=== PATIENT | male | born 1945 | race African-American/Black ===

== ENCOUNTER 2024-08-25 10:03 | Outpatient (REF) | payer OTHER, SELFPAY ==
[2024-08-25 11:13] LABS: Erythrocyte Sedimentation Rate 14 MM/HR (0-15)
--- OUTSIDE RECORDS SUMMARY | 2024-08-25 11:39 | XMS_ITS | Encounter Summary ---
Author Organization [facility] [place] [address] Care Team Providers Care Belt Brander Name Role Phone Yessi Parish MD Primary Care Provider [phone] Encounter Details Date Type Department Care Team (Latest Contact Info) Description 06/03/2024 Lab Requisition [facility] - Main Lab [address] [place] [address] Jah Middleton MD [address] [place] [address] Hyperlipidemia, unspecified; Encounter for screening for other viral diseases; Postprocedural hypothyroidism; Encounter for general adult medical examination without abnormal findings; Essential (primary) hypertension; Mild intermittent asthma, uncomplicated; Unspecified osteoarthritis, unspecified site; Vitamin D deficiency, unspecified; Anemia, unspecified; Type 2 diabetes mellitus with hyperglycemia (CMS/HCC V24, CMS/HCC V28) Social History Tobacco Use Types Packs/Day Years Used Date Smoking Tobacco: Never Smokeless Tobacco: Never Alcohol Use Standard Drinks/Week Comments No 0 (1 standard drink = 0.6 oz pur e alcohol) Sex and Gender Information Value Date Recorded Sex Assigned at Male 06/18/2024 9:57 PM EST Legal Sex Male 1:50 PM EST Gender Identity Male 06/18/2024 9:57 PM EST Sexual Orientation Straight 06/18/2024 9: 57 PM EST documented as of this encounter Plan of Treatment Upcoming Encounters Date Type Department Care Team (Late st Contact Info) Description 09/25/2024 1:00 PM EDT Office Visit Endocrinology [facility] [place] [address] [place] [address] Tawana Sethi PA [address] [place] [address] documented as of this encounter Procedures Procedure Name Priority Date/Time Associated Diagnosis Comments HEPATITIS C ANTIBODY Routine 06/04/2024 7:56 AM EST Encounter for screening for other viral diseases VITAMIN B12 AND FOLATE Routine 06/04/2024 7:56 AM EST Anemia, unspecified CBC WITH AUTO DIFFERENTIAL Routine 06/04/2024 7:56 AM EST Mild intermittent asthma, uncomplicated VITAMIN D 25 HYDROXY Routine 06/04/2024 7:56 AM EST Vitamin D deficiency, unspecified SEDIMENTATION RATE Routine 06/04/2024 7: 56 AM EST Unspecified osteoarthritis, unspecified site CBC AND DIFFERENTIAL Routine 06/04/2024 7:56 AM EST Mild intermittent asthma, uncomplicated URIC ACID Routine 06/04/2024 7:56 AM EST Encounter for general adult medical examination without abnormal findings THYROID STIMULATING HORMONE Routine 06/04/2024 7:56 AM EST Postprocedural hypothyroidism LDL CHOLESTEROL, DIRECT Routine 06/04/2024 7:56 AM EST Hyperlipidemia, unspecified HDL CHOLESTEROL Routine 06/04/2024 7:56 AM EST Hyperlipidemia, unspecified HEMOGLOBIN A1C Routine 06/04/2024 7:56 AM EST Type 2 diabetes mellitus with hyperglycemia (CMS/HCC) CHOLESTEROL, TOTAL Routine 06/04/2024 7: 56 AM EST Hyperlipidemia, unspecified COMPREHENSIVE METABOLIC PANEL Routine 06/04/2024 7:56 AM EST Essential (primary) hypertension documented in this encounter Results * (ABNORMAL) CBC auto differential (06/04/2024 7:56 AM EST) [facility] WBC 7.7 4.8 - 10.8 K/mcL LAB HEMETOLOGY METHOD 06/04/2024 8:24 AM [facility] RBC 4.40(L) 4.50 - 5.50 M/mcL LAB HEMETOLOGY METHOD 06/04/2024 8:24 AM [facility] LAB Hemoglobin 12.7(L) 13.5 - 17.5 g/dL LAB HEMETOLOGY METHOD 06/04/2024 8:24 AM [facility] LAB Hematocrit 39.5(L) 42.0 - 54.0 % LAB HEMETOLOGY METHOD 06/04/2024 8:24 AM [facility] MCV 90.2 79.0 - 98.0 FL LAB HEMETOLOGY METHOD 06/04/2024 8:24 AM [facility] LAB MCH 29.0 27.0 - 32.0 pcg LAB HEMETOLOGY METHOD 06/04/2024 8:24 AM [facility] LAB MCHC 32.2 32.0 - 37.0 g/dL LAB HEMETOLOGY METHOD 06/04/2024 8:24 AM [facility] RDW 11.8 11.0 - 15.0 % LAB HEMETOLOGY METHOD 06/04/2024 8:24 AM [facility] LAB Platelets 246 130 - 400 K/mcL LAB HEMETOLOGY METHOD 06/04/2024 8:24 AM [facility] MPV 9.6 7.0 - 11.0 FL LAB HEMETOLOGY METHOD 06/04/2024 8:24 AM [facility] NRBC 0.0 <1.0 % LAB HEMETOLOGY METHOD 06/04/2024 8:24 AM [facility] NRBC Absolute 0.00 <0.10 K/mcL LAB HEMETOLOGY METHOD 06/04/2024 8:24 AM [facility] Neutrophils Relative 57.8 % LAB HEMETOLOGY METHOD 06/04/2024 8:24 AM [facility] Lymphocytes Relative 29.5 % LAB HEMETOLOGY METHOD 06/04/2024 8:24 AM [facility] Monocytes Relative 10.0 % LAB HEMETOLOGY METHOD 06/04/2024 8:24 AM [facility] Eosinophils Relative 1.4 % LAB HEMETOLOGY METHOD 06/04/2024 8:24 AM [facility] Basophils Relative 0.8 % LAB HEMETOLOGY METHOD 06/04/2024 8:24 AM [facility] Immature Granulocytes Relative 0.5 % LAB HEMETOLOGY METHOD 06/04/2024 8:24 AM [facility] Neutrophils Absolute 4.43 1.50 - 7.00 K/mcL LAB HEMETOLOGY METHOD 06/04/2024 8:24 AM [facility] Lymphocytes Absolute 2.26 1.00 - 5.00 K/mcL LAB HEMETOLOGY METHOD 06/04/2024 8:24 AM [facility] Monocytes Absolute 0.77 0.20 - 1.00 K/mcL LAB HEMETOLOGY METHOD 06/04/2024 8:24 AM [facility] Eosinophils Absolute 0.11 0.00 - 0.50 K/mcL LAB HEMETOLOGY METHOD 06/04/2024 8:24 AM [facility] Basophils Absolute 0.06 0.00 - 0.20 K/mcL LAB HEMETOLOGY METHOD 06/04/2024 8:24 AM EST [facility] Immature Granulocytes Absolute 0.04(H) 0.00 - 0.03 K/mcL LAB HEMETOLOGY METHOD 06/04/2024 8:24 AM EST [facility] Blood Venous blood specimen / Unknown Venipuncture / Unknown 06/04/2024 7:56 AM EST 06/04/2024 8:10 AM EST Jah Middleton MD LAB BLOOD ORDERABLES Final Res ult [facility] [address] [place] [address], [place] [phone] * Hemoglobin A1c (06/04/2024 7:56 AM EST) Hemoglobin A1C 5.0 <6.5 % LAB CHEMISTRY METHOD 06/04/2024 12:36 PM EST [facility] Mean Bld Glu Estim. 97 mg/dL LAB CHEMISTRY METHOD 06/04/2024 12:36 PM EST [facility] Blood Venous blood specimen / Unknown Venipuncture / Unknown 06/04/2024 7:56 AM EST 06/04/2024 8:10 AM EST Jah Middleton MD LAB BLOOD ORDERABLES Final Res ult [facility] [address] [place] [address], [place] [phone] * Vitamin B12 and folate (06/04/2024 7:56 AM EST) Vitamin B-12 343 250 - 900 pcg/mL LAB CHEMISTRY METHOD 06/04/2024 9:11 AM EST [facility] Folate 5.7 2.8 - 17.0 ng/ml LAB CHEMISTRY METHOD 06/04/2024 9:11 AM EST [facility] Blood Venous blood specimen / Unknown Venipuncture / Unknown 06/04/2024 7:56 AM EST 06/04/2024 8:09 AM EST Jah Middleton MD LAB BLOOD ORDERABLES Final Res ult Performing Organization Address [facility]/ZIP Co de Phone Number [facility] [address] [place] [address], [place] [phone] * Cholesterol, total (06/04/2024 7:56 AM EST) Cholesterol 130 0 - 200 mg/dL LAB CHEMISTRY METHOD 06/04/2024 8:49 AM EST [facility] Blood Venous blood specimen / Unknown Venipuncture / Unknown 06/04/2024 7:56 AM EST 06/04/2024 8:09 AM EST Jah Middleton MD LAB BLOOD ORDERABLES Final Res ult Performing Organization Address [facility]/ZIP Co de Phone Number [facility] [address] [place] [address], [place] [phone] * (ABNORMAL) Vitamin D 25 hydroxy (06/04/2024 7:56 AM EST) Vit D, 25-Hydroxy 19.8(L) 30.0 - 80.0 ng/mL LAB CHEMISTRY METHOD 06/04/2024 8:57 AM EST [facility] Blood Venous blood specimen / Unknown Venipuncture / Unknown 06/04/2024 7:56 AM EST 06/04/2024 8:09 AM EST Jah Middleton MD LAB BLOOD ORDERABLES Final Res ult Performing Organization Address City/[facility]/ZIP Co de Phone Number [facility] [address] [place] [address], [place] [phone] * Sedimentation rate (06/04/2024 7:56 AM EST) Sed Rate 17 0 - 20 mm/hr LAB HEMETOLOGY METHOD 06/04/2024 8:25 AM [facility] Blood Venous blood specimen / Unknown Venipuncture / Unknown 06/04/2024 7:56 AM EST 06/04/2024 8:10 AM EST Jah Middleton MD LAB BLOOD ORDERABLES Final Res ult [facility] [address] [place] [address], * (ABNORMAL) Comprehensive metabolic panel (06/04/2024 7:56 AM EST) Sodium 136 133 - 145 mmol/L LAB CHEMISTRY METHOD 06/04/2024 8:49 AM [facility] Potassium 4.2 3.5 - 5.5 mmol/L LAB CHEMISTRY METHOD 06/04/2024 8:49 AM [facility] Chloride 107 96 - 110 mmol/L LAB CHEMISTRY METHOD 06/04/2024 8:49 AM [facility] CO2 26 21 - 32 mmol/L LAB CHEMISTRY METHOD 06/04/2024 8:49 AM [facility] Anion Gap 3 3 - 11 LAB CHEMISTRY METHOD 06/04/2024 8:49 AM [facility] Glucose 98 70 - 100 mg/dL LAB CHEMISTRY METHOD 06/04/2024 8:49 AM [facility] BUN 8 5 - 25 mg/dL LAB CHEMISTRY METHOD 06/04/2024 8:49 AM [facility] Creatinine 1.61(H) 0.70 - 1.30 mg/dL LAB CHEMISTRY METHOD 06/04/2024 8:49 AM [facility] eGFR 44(L) >=60 mL/min/1. 73m2 LAB CHEMISTRY METHOD 06/04/2024 8:49 AM [facility] Comment:Calculation based on the??Chronic Kidney Disease Epidemiology Collaboration (CKD-EPI) equation refit??without adjustment for race. BUN/Creatinine Ratio 5.0 LAB CHEMISTRY METHOD 06/04/2024 8:49 AM [facility] Calcium 9.3 8.5 - 10.5 mg/dL LAB CHEMISTRY METHOD 06/04/2024 8:49 AM [facility] AST (SGOT) 17 10 - 42 unit/L LAB CHEMISTRY METHOD 06/04/2024 8:49 AM [facility] ALT (SGPT) 15 10 - 60 unit/L LAB CHEMISTRY METHOD 06/04/2024 8:49 AM [facility] Alkaline Phosphatase 50 42 - 121 unit/L LAB CHEMISTRY METHOD 06/04/2024 8:49 AM [facility] Total Protein 7.1 6.0 - 8.0 g/dL LAB CHEMISTRY METHOD 06/04/2024 8:49 AM [facility] Albumin 3.8 3.2 - 5.0 g/dL LAB CHEMISTRY METHOD 06/04/2024 8:49 AM [facility] Total Bilirubin 0.6 0.0 - 1.4 mg/dL LAB CHEMISTRY METHOD 06/04/2024 8:49 AM [facility] Blood Venous blood specimen / Unknown Venipuncture / Unknown 06/04/2024 7:56 AM EST 06/04/2024 8:09 AM EST us Jah Middleton MD LAB BLOOD ORDERABLES Final Res ult [facility] [address] [place] [address], * (ABNORMAL) Uric acid (06/04/2024 7:56 AM EST) Uric Acid 3.4(L) 3.7 - 9.2 mg/dL LAB CHEMISTRY METHOD 06/04/2024 8:49 AM EST [facility] Blood Venous blood specimen / Unknown Venipuncture / Unknown 06/04/2024 7:56 AM EST 06/04/2024 8:09 AM EST Jha Middleton MD LAB BLOOD ORDERABLES Final Res ult [facility] [address] [place] [address], [place] [phone] * Thyroid stimulating hormone (06/04/2024 7:56 AM EST) [facility] TSH 0.86 0.40 - 4.00 mcIU/mL LAB CHEMISTRY METHOD 06/04/2024 8:57 AM EST [facility] Blood Venous blood specimen / Unknown Venipuncture / Unknown 06/04/2024 7:56 AM EST 06/04/2024 8:09 AM EST Jah Middleton MD LAB BLOOD ORDERABLES Final Res ult Performing Organization Address [facility]/ZIP Co de Phone Number [facility] [address] [place] [address], [place] [phone] * Hepatitis C antibody (06/04/2024 7:56 AM EST) [facility] Hepatitis C Antibody Negative Negative LAB CHEMISTRY METHOD 06/09/2024 7:08 AM EST [facility] Blood Venous blood specimen / Unknown Venipuncture / Unknown 06/04/2024 7:56 AM EST 06/04/2024 8:09 AM EST Jah Middleton MD LAB BLOOD ORDERABLES Edited Re sult - Final [facility] [address] [place] [address], [place] [phone] * LDL cholesterol, direct (06/04/2024 7:56 AM EST) LDL Direct 61 <=100 mg/dL LAB CHEMISTRY METHOD 06/04/2024 9:11 AM EST [facility] Blood Venous blood specimen / Unknown Venipuncture / Unknown 06/04/2024 7:56 AM EST 06/04/2024 8:09 AM EST us Jah Middleton MD LAB BLOOD ORDERABLES Final Res ult [facility] [address] [place] [address], [place] [phone] * HDL cholesterol (06/04/2024 7:56 AM EST) HDL 56 >=40 mg/dL LAB CHEMISTRY METHOD 06/04/2024 9:11 AM EST [facility] Blood Venous blood specimen / Unknown Venipuncture / Unknown 06/04/2024 7:56 AM EST 06/04/2024 8:09 AM EST us Jah Middleton MD LAB BLOOD ORDERABLES Final Res ult [facility] [address] [place] [address], [place] [phone] documented in this encounter Visit Diagnoses Diagnosis Hyperlipidemia, unspecified Encounter for screening for other viral diseases Postprocedural hypothyroidism Postsurgical hypothyroidism Encounter for general adult medical examination without abnormal findings Essential (primary) hypertension Unspecified essential hypertension Mild intermittent asthma, uncomplicated Unspecified osteoarthritis, unspecified site Vitamin D deficiency, unspecified Anemia, unspecified Type 2 diabetes mellitus with hyperglycemia (CMS/HCC V24, CMS/HCC V28) documented in this encounter Additional Health Concerns Infection Onset Date Last Indicated Resolved Time Respiratory Rule-Out 06/18/2024 06/18/2024 025 11:25 PM EST COVID-19 Rule-Out 06/18/2024 06/18/2024 06/18/2024 11:25 PM EST Respiratory Rule-Out Comment:Completed isolation 06/20/2024 06/20/2024 06/25/2024 12:28 PM EST COVID-19 Rule-Out Comment:Completed isolation 06/20/2024 06/20/2024 06/25/2024 12:28 PM EST Herpes simplex 08/07/2024 08/07/2024 documented as of this encounter Care Teams Belt Brander Relationship Specialty Start Date End Date Yessi Parish MD [address] [address] PCP - General Internal Medicine 08/21/24 documented as of this encounter
--- OUTSIDE RECORDS SUMMARY | 2024-08-25 11:39 | XMS_ITS | Encounter Summary ---
Author Organization [facility] [place] [address] Care Team Providers Care Foil Spooler Name Role Phone Yessi Parish MD Primary Care Provider [phone] Encounter Details Date Type Department Care Team (Latest Contact Info) Description 06/30/2024 Lab Requisition [facility] - Main Lab [address] [place] [address] Jah Middleton MD [address] [place] [address] Rhabdomyolysis; Postprocedural hypothyroidism; Encounter for general adult medical examination without abnormal findings; Essential (primary) hypertension; Mild intermittent asthma, uncomplicated; Unspecified osteoarthritis, unspecified site; Urgency of urination; Type 2 diabetes mellitus with hyperglycemia (CMS/HCC V24, CMS/HCC V28) Social History Tobacco Use Types Packs/Day Years Used Date Smoking Tobacco: Never Smokeless Tobacco: Never Alcohol Use Standard Drinks/Week Comments No 0 (1 standard drink = 0.6 oz pur e alcohol) Interpersonal Safety Answer Date Record ed Physical Abuse 06/19/2024 Verbal Abuse 06/19/2024 Sex and Gender Information Value Date Recorded Sex Assigned at Male 06/18/2024 9:57 PM EST Legal Sex Male 1:50 PM EST Gender Identity Male 06/18/2024 9:57 PM EST Sexual Orientation Straight 06/18/2024 9: 57 PM EST documented as of this encounter Plan of Treatment Upcoming Encounters Date Type Department Care Team (Late st Contact Info) Description 09/25/2024 1:00 PM EDT Office Visit [place] [facility] [place] [address] [place] [address] Tawana Sethi PA [address] [place] [address] documented as of this encounter Procedures Procedure Name Priority Date/Time Associated Diagnosis Comments CBC WITH AUTO DIFFERENTIAL Routine 07/02/2024 10:40 AM EDT Mild intermittent asthma, uncomplicated SEDIMENTATION RATE Routine 07/02/2024 10 :40 AM EDT Unspecified osteoarthritis, unspecified site CBC AND DIFFERENTIAL Routine 07/02/2024 10:40 AM EDT Mild intermittent asthma, uncomplicated URIC ACID Routine 07/02/2024 10:40 AM EDT Encounter for general adult medical examination without abnormal findings THYROID STIMULATING HORMONE Routine 07/02/2024 10:40 AM EDT Postprocedural hypothyroidism MYOGLOBIN, SERUM Routine 07/02/2024 10:4 0 AM EDT Rhabdomyolysis HEMOGLOBIN A1C Routine 07/02/2024 10:40 AM EDT Type 2 diabetes mellitus with hyperglycemia ([facility]/HCC) CREATINE KINASE Routine 07/02/2024 10:40 AM EDT COMPREHENSIVE METABOLIC PANEL Routine 07/02/2024 10:40 AM EDT Essential (primary) hypertension documented in this encounter Results * (ABNORMAL) CBC auto differential (07/02/2024 10:40 AM EDT) WBC 8.6 4.8 - 10.8 K/mcL LAB HEMETOLOGY METHOD 07/02/2024 11:03 AM [facility] RBC 4.40(L) 4.50 - 5.50 M/mcL LAB HEMETOLOGY METHOD 07/02/2024 11:03 AM [facility] Hemoglobin 12.6(L) 13.5 - 17.5 g/dL LAB HEMETOLOGY METHOD 07/02/2024 11:03 AM [facility] Hematocrit 40.0(L) 42.0 - 54.0 % LAB HEMETOLOGY METHOD 07/02/2024 11:03 AM [facility] MCV 90.3 79.0 - 98.0 FL LAB HEMETOLOGY METHOD 07/02/2024 11:03 AM [facility] MCH 28.4 27.0 - 32.0 pcg LAB HEMETOLOGY METHOD 07/02/2024 11:03 AM [facility] MCHC 31.5(L) 32.0 - 37.0 g/dL LAB HEMETOLOGY METHOD 07/02/2024 11:03 AM [facility] RDW 11.9 11.0 - 15.0 % LAB HEMETOLOGY METHOD 07/02/2024 11:03 AM [facility] Platelets 289 130 - 400 K/mcL LAB HEMETOLOGY METHOD 07/02/2024 11:03 AM [facility] MPV 10.2 7.0 - 11.0 FL LAB HEMETOLOGY METHOD 07/02/2024 11:03 AM [facility] NRBC 0.0 <1.0 % LAB HEMETOLOGY METHOD 07/02/2024 11:03 AM [facility] NRBC Absolute 0.00 <0.10 K/mcL LAB HEMETOLOGY METHOD 07/02/2024 11:03 AM [facility] Neutrophils Relative 65.4 % LAB HEMETOLOGY METHOD 07/02/2024 11:03 AM [facility] Lymphocytes Relative 22.5 % LAB HEMETOLOGY METHOD 07/02/2024 11:03 AM [facility] Monocytes Relative 9.8 % LAB HEMETOLOGY METHOD 07/02/2024 11:03 AM [facility] Eosinophils Relative 1.0 % LAB HEMETOLOGY METHOD 07/02/2024 11:03 AM [facility] Basophils Relative 1.0 % LAB HEMETOLOGY METHOD 07/02/2024 11:03 AM [facility] Immature Granulocytes Relative 0.3 % LAB HEMETOLOGY METHOD 07/02/2024 11:03 AM [facility] Neutrophils Absolute 5.62 1.50 - 7.00 K/mcL LAB HEMETOLOGY METHOD 07/02/2024 11:03 AM [facility] Lymphocytes Absolute 1.94 1.00 - 5.00 K/mcL LAB HEMETOLOGY METHOD 07/02/2024 11:03 AM [facility] Monocytes Absolute 0.84 0.20 - 1.00 K/mcL LAB HEMETOLOGY METHOD 07/02/2024 11:03 AM [facility] Eosinophils Absolute 0.09 0.00 - 0.50 K/mcL LAB HEMETOLOGY METHOD 07/02/2024 11:03 AM [facility] Basophils Absolute 0.09 0.00 - 0.20 K/mcL LAB HEMETOLOGY METHOD 07/02/2024 11:03 AM [facility] Immature Granulocytes Absolute 0.03 0.00 - 0.03 K/mcL LAB HEMETOLOGY METHOD 07/02/2024 11:03 AM [facility] Blood Venous blood specimen / Unknown Venipuncture / Unknown 07/02/2024 10:40 AM EDT 07/02/2024 10:45 AM EDT Jah Middleton MD LAB BLOOD ORDERABLES Final Res ult Performing Organization Address City/[facility]/ZIP Co de Phone Number [facility] [address] [place] [address], [place] [phone] * Hemoglobin A1c (07/02/2024 10:40 AM EDT) Pathologist [facility] Hemoglobin A1C 5.0 <6.5 % LAB CHEMISTRY METHOD 07/02/2024 1:42 PM EDT [facility] Mean Bld Glu Estim. 97 mg/dL LAB CHEMISTRY METHOD 07/02/2024 1:42 PM EDT [facility] Blood Venous blood specimen / Unknown Venipuncture / Unknown 07/02/2024 10:40 AM EDT 07/02/2024 10:45 AM EDT Jah Middleton MD LAB BLOOD ORDERABLES Final Res ult Performing Organization Address [facility]/ZIP Co de Phone Number [facility] [address] [place] [address], [place] [phone] * Creatine kinase (07/02/2024 10:40 AM EDT) Pathologist [facility] Total CK 107 22 - 269 unit/L LAB CHEMISTRY METHOD 07/02/2024 12:44 PM EDT [facility] Blood Venous blood specimen / Unknown Venipuncture / Unknown 07/02/2024 10:40 AM EDT 07/02/2024 10:47 AM EDT Jah Middleton MD LAB BLOOD ORDERABLES Final Res ult Performing Organization Address City/[facility]/ZIP Co de Phone Number [facility] [address] [place] [address], [place] [phone] * (ABNORMAL) Sedimentation rate (07/02/2024 10:40 AM EDT) Sed Rate 37(H) 0 - 20 mm/hr LAB HEMETOLOGY METHOD 07/02/2024 11:00 AM [facility] Blood Venous blood specimen / Unknown Venipuncture / Unknown 07/02/2024 10:40 AM EDT 07/02/2024 10:46 AM EDT us Jah Middleton MD LAB BLOOD ORDERABLES Final Res ult [facility] [address] [place] [address], * (ABNORMAL) Comprehensive metabolic panel (07/02/2024 10:40 AM EDT) Sodium 135 133 - 145 mmol/L LAB CHEMISTRY METHOD 07/02/2024 12:44 PM [facility] Potassium 4.9 3.5 - 5.5 mmol/L LAB CHEMISTRY METHOD 07/02/2024 12:44 PM [facility] Chloride 106 96 - 110 mmol/L LAB CHEMISTRY METHOD 07/02/2024 12:44 PM [facility] CO2 22 21 - 32 mmol/L LAB CHEMISTRY METHOD 07/02/2024 12:44 PM [facility] Anion Gap 7 3 - 11 LAB CHEMISTRY METHOD 07/02/2024 12:44 PM [facility] Glucose 101(H) 70 - 100 mg/dL LAB CHEMISTRY METHOD 07/02/2024 12:44 PM [facility] BUN 13 5 - 25 mg/dL LAB CHEMISTRY METHOD 07/02/2024 12:44 PM [facility] Creatinine 1.79(H) 0.70 - 1.30 mg/dL LAB CHEMISTRY METHOD 07/02/2024 12:44 PM [facility] eGFR 38(L) >=60 mL/min/1. 73m2 LAB CHEMISTRY METHOD 07/02/2024 12:44 PM [facility] Comment:Calculation based on the??Chronic Kidney Disease Epidemiology Collaboration (CKD-EPI) equation refit??without adjustment for race. BUN/Creatinine Ratio 7.3 LAB CHEMISTRY METHOD 07/02/2024 12:44 PM [facility] Calcium 9.7 8.5 - 10.5 mg/dL LAB CHEMISTRY METHOD 07/02/2024 12:44 PM [facility] AST (SGOT) 18 10 - 42 unit/L LAB CHEMISTRY METHOD 07/02/2024 12:44 PM [facility] ALT (SGPT) 35 10 - 60 unit/L LAB CHEMISTRY METHOD 07/02/2024 12:44 PM [facility] Alkaline Phosphatase 47 42 - 121 unit/L LAB CHEMISTRY METHOD 07/02/2024 12:44 PM [facility] Total Protein 7.3 6.0 - 8.0 g/dL LAB CHEMISTRY METHOD 07/02/2024 12:44 PM [facility] Albumin 3.9 3.2 - 5.0 g/dL LAB CHEMISTRY METHOD 07/02/2024 12:44 PM [facility] Total Bilirubin 0.5 0.0 - 1.4 mg/dL LAB CHEMISTRY METHOD 07/02/2024 12:44 PM [facility] Blood Venous blood specimen / Unknown Venipuncture / Unknown 07/02/2024 10:40 AM EDT 07/02/2024 10:47 AM EDT us Jah Middleton MD LAB BLOOD ORDERABLES Final Res ult [facility] [address] [place] [address], * Uric acid (07/02/2024 10:40 AM EDT) Uric Acid 4.4 3.7 - 9.2 mg/dL LAB CHEMISTRY METHOD 07/02/2024 12:44 PM EDT [facility] Blood Venous blood specimen / Unknown Venipuncture / Unknown 07/02/2024 10:40 AM EDT 07/02/2024 10:47 AM EDT Jah Middleton MD LAB BLOOD ORDERABLES Final Res ult [facility] [address] [place] [address], [place] [phone] * Thyroid stimulating hormone (07/02/2024 10:40 AM EDT) TSH 1.06 0.40 - 4.00 mcIU/mL LAB CHEMISTRY METHOD 07/02/2024 12:51 PM EDT [facility] Blood Venous blood specimen / Unknown Venipuncture / Unknown 07/02/2024 10:40 AM EDT 07/02/2024 10:47 AM EDT Jah Middleton MD LAB BLOOD ORDERABLES Final Res ult Performing Organization Address City/[facility]/ZIP Co de Phone Number [facility] [address] [place] [address], [place] [phone] * Myoglobin, serum (07/02/2024 10:40 AM EDT) Myoglobin 46 <=72 ng/mL 07/06/2024 2:27 AM EDT [facility] Comment: REFERENCE INTERVAL: Myoglobin Serum Access complete set of age- and/or gender-specific reference intervals for this test in the [facility] Test Directory ([employer]). Performed By: [facility] [address] [place] [id number] [employer]n Firer: Salazar Brooks MD, PhD CLIA Number: [id number] Blood Venous blood specimen / Unknown Venipuncture / Unknown 07/02/2024 10:40 AM EDT 07/02/2024 10:46 AM EDT Jah Middleton MD LAB BLOOD ORDERABLES Final Res ult [facility] [address] [place] [address] documented in this encounter Visit Diagnoses Diagnosis Rhabdomyolysis Postprocedural hypothyroidism Postsurgical hypothyroidism Encounter for general adult medical examination without abnormal findings Essential (primary) hypertension Unspecified essential hypertension Mild intermittent asthma, uncomplicated Unspecified osteoarthritis, unspecified site Urgency of urination Type 2 diabetes mellitus with hyperglycemia (CMS/[facility] V24, CMS/[facility] V28) documented in this encounter Additional Health Concerns Infection Onset Date Last Indicated Resolved Time Herpes simplex 08/07/2024 08/07/2024 documented as of this encounter Care Teams Foil Spooler Relationship Specialty Start Date End Date Yessi Parish MD [address] [place] [address] PCP - General Internal Medicine 08/21/24 documented as of this encounter
--- OUTSIDE RECORDS SUMMARY | 2024-08-25 11:39 | XMS_ITS | Encounter Summary ---
Author Organization [facility] [place] [address] Care Team Providers Care Hospital Receptionist Name Role Phone Yessi Parish MD Primary Care Provider [phone] Encounter Details Date Type Department Care Team (Latest Contact Info) Description 05/07/2024 Lab Requisition [facility] - Main Lab [address] [facility] [place] [address] Cory Hand, DARIO [address] [facility] DIL[place] [address] [place] [address] Encounter for screening for malignant neoplasm of prostate; Type 2 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 (CMS/HCC V24, CMS/HCC V28); Hyperlipidemia, unspecified; Essential (primary) hypertension Social History Tobacco Use Types Packs/Day Years [...] 09/25/2024 1:00 PM EDT Office Visit Endocrinology - [place] [address] [place], [place] [phone] Tawana Sethi PA [address] [place] [address] documented as of this encounter Procedures Procedure Name Priority Date/Time Associated Diagnosis Comments PROSTATE SPECIFIC ANTIGEN SCREEN Routine 05/07/2024 12:00 AM EST Encounter for screening for malignant neoplasm of prostate Type 2 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 (CMS/HCC) Hyperlipidemia, unspecified Essential (primary) hypertension SST - GOLD Routine 05/07/2024 12:00 AM EST Encounter for screening for malignant neoplasm of prostate Type 2 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 (CMS/HCC) Hyperlipidemia, unspecified Essential (primary) hypertension LIPID PANEL WITH REFLEX TO DIRECT LDL Routine 05/07/2024 12:00 AM EST Encounter for screening for malignant neoplasm of prostate Type 2 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 (CMS/HCC) Hyperlipidemia, unspecified Essential (primary) hypertension CBC WITH AUTO DIFFERENTIAL Routine 05/07/2024 12:00 AM EST Encounter for screening for malignant neoplasm of prostate Type 2 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 (CMS/HCC) Hyperlipidemia, unspecified Essential (primary) hypertension CBC AND DIFFERENTIAL Routine 05/07/2024 12:00 AM EST Encounter for screening for malignant neoplasm of prostate Type 2 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 (CMS/HCC) Hyperlipidemia, unspecified Essential (primary) hypertension LDL CHOLESTEROL, DIRECT Routine 05/07/2024 12:00 AM EST Encounter for screening for malignant neoplasm of prostate Type 2 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 (CMS/HCC) Hyperlipidemia, unspecified Essential (primary) hypertension HEMOGLOBIN A1C Routine 05/07/2024 12:00 AM EST Encounter for screening for malignant neoplasm of prostate Type 2 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 (CMS/HCC) Hyperlipidemia, unspecified Essential (primary) hypertension COMPREHENSIVE METABOLIC PANEL Routine 05/07/2024 12:00 AM EST Encounter for screening for malignant neoplasm of prostate Type 2 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 (CMS/HCC) Hyperlipidemia, unspecified Essential (primary) hypertension documented in this encounter Results * SST tube (05/07/2024 12:00 AM EST) Pathologist [facility] Extra Tube Hold for add-ons. 05/07/2024 8:01 PM EST [facility] Comment:Auto resulted. Blood Venous blood specimen / Unknown 05/07/2024 05/07/2024 6:56 PM EST Cory BISHOP LAB BLOOD ORDERABLES Final Res ult [facility] [address] [place] [address], [place] [phone] * (ABNORMAL) CBC auto differential (05/07/2024 12:00 AM EST) [facility] WBC 9.6 4.8 - 10.8 K/mcL LAB HEMETOLOGY METHOD 05/07/2024 7:05 PM [facility] RBC 4.30(L) 4.50 - 5.50 M/mcL LAB HEMETOLOGY METHOD 05/07/2024 7:05 PM [facility] Hemoglobin 12.3(L) 13.5 - 17.5 g/dL LAB HEMETOLOGY METHOD 05/07/2024 7:05 PM [facility] Hematocrit 39.3(L) 42.0 - 54.0 % LAB HEMETOLOGY METHOD 05/07/2024 7:05 PM [facility] MCV 91.0 79.0 - 98.0 FL LAB HEMETOLOGY METHOD 05/07/2024 7:05 PM [facility] MCH 28.5 27.0 - 32.0 pcg LAB HEMETOLOGY METHOD 05/07/2024 7:05 PM [facility] MCHC 31.3(L) 32.0 - 37.0 g/dL LAB HEMETOLOGY METHOD 05/07/2024 7:05 PM [facility] RDW 12.2 11.0 - 15.0 % LAB HEMETOLOGY METHOD 05/07/2024 7:05 PM [facility] Platelets 261 130 - 400 K/mcL LAB HEMETOLOGY METHOD 05/07/2024 7:05 PM [facility] MPV 10.0 7.0 - 11.0 FL LAB HEMETOLOGY METHOD 05/07/2024 7:05 PM [facility] NRBC 0.0 <1.0 % LAB HEMETOLOGY METHOD 05/07/2024 7:05 PM [facility] NRBC Absolute 0.00 <0.10 K/mcL LAB HEMETOLOGY METHOD 05/07/2024 7:05 PM [facility] Neutrophils Relative 64.3 % LAB HEMETOLOGY METHOD 05/07/2024 7:05 PM [facility] Lymphocytes Relative 22.7 % LAB HEMETOLOGY METHOD 05/07/2024 7:05 PM [facility] Monocytes Relative 10.6 % LAB HEMETOLOGY METHOD 05/07/2024 7:05 PM [facility] Eosinophils Relative 1.1 % LAB HEMETOLOGY METHOD 05/07/2024 7:05 PM [facility] Basophils Relative 0.8 % LAB HEMETOLOGY METHOD 05/07/2024 7:05 PM [facility] Immature Granulocytes Relative 0.5 % LAB HEMETOLOGY METHOD 05/07/2024 7:05 PM [facility] Neutrophils Absolute 6.18 1.50 - 7.00 K/mcL LAB HEMETOLOGY METHOD 05/07/2024 7:05 PM [facility] Lymphocytes Absolute 2.18 1.00 - 5.00 K/mcL LAB HEMETOLOGY METHOD 05/07/2024 7:05 PM EST [facility] Monocytes Absolute 1.02(H) 0.20 - 1.00 K/mcL LAB HEMETOLOGY METHOD 05/07/2024 7:05 PM EST [facility] Eosinophils Absolute 0.11 0.00 - 0.50 K/[facility] LAB HEMETOLOGY METHOD 05/07/2024 7:05 PM EST [facility] Basophils Absolute 0.08 0.00 - 0.20 K/[facility] LAB HEMETOLOGY METHOD 05/07/2024 7:05 PM EST [facility] Immature Granulocytes Absolute 0.05(H) 0.00 - 0.03 K/mcL LAB HEMETOLOGY METHOD 05/07/2024 7:05 PM EST [facility] Blood Venous blood specimen / Unknown 05/07/2024 05/07/2024 6:56 PM EST us Cory BISHOP LAB BLOOD ORDERABLES Final Res ult [facility] [address] [place] [address], * Prostate specific antigen screen (05/07/2024 12:00 AM EST) PSA <0.06 0.00 - 4.00 ng/mL LAB CHEMISTRY METHOD 05/07/2024 10:14 PM EST [facility] Blood Venous blood specimen / Unknown 05/07/2024 05/07/2024 6:56 PM EST Narrative [facility] - 05/07/2024 10:14 PM EST The Siemens Advia Centaur Chemiluminescent Immunoassay is used. Results obtained with different assay methods or kits cannot be used interchangeably. Results cannot be interpreted as absolute evidence of the presence or absence of malignant disease. Cory BISHOP LAB BLOOD ORDERABLES Final Res ult [facility] [address] [place] [address], [place] [phone] * Hemoglobin A1c (05/07/2024 12:00 AM EST) Hemoglobin A1C 5.2 <6.5 % LAB CHEMISTRY METHOD 05/08/2024 10:14 AM EST [facility] Mean Bld Glu Estim. 103 mg/dL LAB CHEMISTRY METHOD 05/08/2024 10:14 AM EST [facility] Blood Venous blood specimen / Unknown 05/07/2024 05/07/2024 6:56 PM EST Cory BISHOP LAB BLOOD ORDERABLES Final Res ult Performing Organization Address [facility]/ZIP Co de Phone Number [facility] [address] [place] [address], [place] [phone] * LDL cholesterol, direct (05/07/2024 12:00 AM EST) LDL Direct 69 <=100 mg/dL LAB CHEMISTRY METHOD 05/07/2024 9:52 PM EST [facility] Blood Venous blood specimen / Unknown 05/07/2024 05/07/2024 6:56 PM EST Cory BISHOP LAB BLOOD ORDERABLES Final Res ult [facility] [address] [place] [address], [place] [phone] * Lipid panel with reflex to direct LDL (05/07/2024 12:00 AM EST) Cholesterol 146 0 - 200 mg/dL LAB CHEMISTRY METHOD 05/07/2024 9:52 PM EST [facility] Triglycerides 66 0 - 150 mg/dL LAB CHEMISTRY METHOD 05/07/2024 9:52 PM [facility] HDL 53 >=40 mg/dL LAB CHEMISTRY METHOD 05/07/2024 9:52 PM [facility] LDL Calculated 80 0 - 100 mg/dL LAB CHEMISTRY METHOD 05/07/2024 9:52 PM [facility] VLDL Cholesterol Chandra 13.2 mg/dL LAB CHEMISTRY METHOD 05/07/2024 9:52 PM [facility] Non HDL Chol. (LDL+VLDL) 93 <145 mg/dL LAB CHEMISTRY METHOD 05/07/2024 9:52 PM [facility] Chol/HDL Ratio 2.8 0.0 - 4.4 LAB CHEMISTRY METHOD 05/07/2024 9:52 PM [facility] Blood Venous blood specimen / Unknown 05/07/2024 05/07/2024 6:56 PM EST us Cory BISHOP LAB BLOOD ORDERABLES Final Res ult [facility] [address] [place] [address], [place] [phone] * (ABNORMAL) Comprehensive metabolic panel (05/07/2024 12:00 AM EST) Sodium 136 133 - 145 mmol/L LAB CHEMISTRY METHOD 05/07/2024 9:52 PM [facility] Potassium 4.4 3.5 - 5.5 mmol/L LAB CHEMISTRY METHOD 05/07/2024 9:52 PM [facility] Chloride 106 96 - 110 mmol/L LAB CHEMISTRY METHOD 05/07/2024 9:52 PM [facility] CO2 24 21 - 32 mmol/L LAB CHEMISTRY METHOD 05/07/2024 9:52 PM [facility] Anion Gap 6 3 - 11 LAB CHEMISTRY METHOD 05/07/2024 9:52 PM [facility] Glucose 108(H) 70 - 100 mg/dL LAB CHEMISTRY METHOD 05/07/2024 9:52 PM [facility] BUN 10 5 - 25 mg/dL LAB CHEMISTRY METHOD 05/07/2024 9:52 PM [facility] Creatinine 1.80(H) 0.70 - 1.30 mg/dL LAB CHEMISTRY METHOD 05/07/2024 9:52 PM [facility] eGFR 38(L) >=60 mL/min/1. 73m2 LAB CHEMISTRY METHOD 05/07/2024 9:52 PM [facility] Comment:Calculation based on the??Chronic Kidney Disease Epidemiology Collaboration (CKD-EPI) equation refit??without adjustment for race. BUN/Creatinine Ratio 5.6 LAB CHEMISTRY METHOD 05/07/2024 9:52 PM [facility] Calcium 8.8 8.5 - 10.5 mg/dL LAB CHEMISTRY METHOD 05/07/2024 9:52 PM [facility] AST (SGOT) 14 10 - 42 unit/L LAB CHEMISTRY METHOD 05/07/2024 9:52 PM [facility] ALT (SGPT) 17 10 - 60 unit/L LAB CHEMISTRY METHOD 05/07/2024 9:52 PM [facility] Alkaline Phosphatase 54 42 - 121 unit/L LAB CHEMISTRY METHOD 05/07/2024 9:52 PM [facility] Total Protein 7.5 6.0 - 8.0 g/dL LAB CHEMISTRY METHOD 05/07/2024 9:52 PM [facility] Albumin 4.0 3.2 - 5.0 g/dL LAB CHEMISTRY METHOD 05/07/2024 9:52 PM [facility] Total Bilirubin 0.6 0.0 - 1.4 mg/dL LAB CHEMISTRY METHOD 05/07/2024 9:52 PM [facility] Blood Venous blood specimen / Unknown 05/07/2024 05/07/2024 6:56 PM EST us Cory BISHOP LAB BLOOD ORDERABLES Final Res ult [facility] ([facility] [address] [place] [address], documented in this encounter Visit Diagnoses Diagnosis Encounter for screening for malignant neoplasm of prostate Type 2 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 (CMS/HCC V24, CMS/HCC V28) Hyperlipidemia, unspecified Essential (primary) hypertension Unspecified essential hypertension documented in this encounter Additional Health Concerns Infection Onset Date Last Indicated Resolved Time Respiratory Rule-Out 06/18/2024 06/18/2024 025 11:25 PM EST COVID-19 Rule-Out 06/18/2024 06/18/2024 06/18/2024 11:25 PM EST [facility] Comment:Completed isolation 06/20/2024 06/20/2024 06/25/2024 12:28 PM EST COVID-19 Rule-Out Comment:Completed isolation 06/20/2024 06/20/2024 06/25/2024 12:28 PM EST Herpes simplex 08/07/2024 08/07/2024 documented as of this encounter Care Teams Hospital Receptionist Relationship Specialty Start Date End Date Yessi Parish MD [address] [facility] [address] [place] [address] PCP - General Internal Medicine 08/21/24 documented as of this encounter
--- OUTSIDE RECORDS SUMMARY | 2024-08-25 11:39 | XMS_ITS | Encounter Summary ---
Author Organization [facility] [place] [address] Care Team Providers Care Cd Reactor Operator Name Role Phone Yessi Parish MD Primary Care Provider [phone] Encounter Details Date Type Department Care Team (Latest Contact Info) Description 08/07/[address] [facility] - Main Lab [address] [place] [address] Jah Middleton MD [address] [place] [address] Postprocedural hypothyroidism; Encounter for general adult medical examination without abnormal findings; Essential (primary) hypertension; Mild intermittent asthma, uncomplicated; Unspecified osteoarthritis, unspecified site; Age-related cognitive decline; Anemia, unspecified Social History Tobacco Use Types Packs/Day Years [...] 1:00 PM EDT Office Visit Endocrinology - [place] [address] [place] [address] Tawana Sethi PA [address] [place] [address] documented as of this encounter Procedures Procedure Name Priority Date/Time Associated Diagnosis Comments HIV 1, 2 ANTIBODY, P24 ANTIGEN WITH REFLEX TO DIFFERENTIATION Routine 08/07/2024 12:42 PM EDT VITAMIN B12 AND FOLATE Routine 12:42 PM EDT Anemia, unspecified HERPES SIMPLEX VIRUS 1 AND 2, IGG Routine 08/07/2024 12:42 PM EDT Age-related cognitive decline CBC WITH AUTO DIFFERENTIAL Routine 08/07/2024 12:42 PM EDT Mild intermittent asthma, uncomplicated METHYLMALONIC ACID, SERUM Routine 08/07/2024 12:42 PM EDT Age-related cognitive decline IRON AND TIBC Routine 08/07/2024 12:42 PM EDT Anemia, unspecified BORRELIA BURGDORFERI ANTIBODY Routine 08/07/2024 12:42 PM EDT Age-related cognitive decline SEDIMENTATION RATE Routine 08/07/2024 12 :42 PM EDT Unspecified osteoarthritis, unspecified site CBC AND DIFFERENTIAL Routine 08/07/2024 12:42 PM EDT Mild intermittent asthma, uncomplicated URIC ACID Routine 08/07/2024 12:42 PM EDT Encounter for general adult medical examination without abnormal findings THYROID STIMULATING HORMONE Routine 08/07/2024 12:42 PM EDT Postprocedural hypothyroidism COMPREHENSIVE METABOLIC PANEL Routine 08/07/2024 12:42 PM EDT Essential (primary) hypertension documented in this encounter Results * (ABNORMAL) CBC auto differential (08/07/2024 12:42 PM EDT) WBC 9.5 4.8 - 10.8 K/mcL LAB HEMETOLOGY METHOD 08/07/2024 1:45 PM EDT [facility] RBC 4.30(L) 4.50 - 5.50 M/mcL LAB HEMETOLOGY METHOD 08/07/2024 1:45 PM EDT [facility] Hemoglobin 12.1(L) 13.5 - 17.5 g/dL LAB HEMETOLOGY METHOD 08/07/2024 1:45 PM EDT [facility] Hematocrit 38.2(L) 42.0 - 54.0 % LAB HEMETOLOGY METHOD 08/07/2024 1:45 PM EDT [facility] MCV 89.9 79.0 - 98.0 FL LAB HEMETOLOGY METHOD 08/07/2024 1:45 PM EDT [facility] MCH 28.5 27.0 - 32.0 pcg [facility] MCHC 31.7(L) 32.0 - 37.0 g/dL LAB HEMETOLOGY METHOD 08/07/2024 1:45 PM EDT [facility] RDW 12.7 11.0 - 15.0 % LAB HEMETOLOGY METHOD 08/07/2024 1:45 PM EDT [facility] Platelets 300 130 - 400 K/mcL LAB HEMETOLOGY METHOD 08/07/2024 1:45 PM EDT [facility] MPV 9.4 7.0 - 11.0 FL LAB HEMETOLOGY METHOD 08/07/2024 1:45 PM EDT [facility] NRBC 0.0 <1.0 % LAB HEMETOLOGY METHOD 08/07/2024 1:45 PM EDT [facility] NRBC Absolute 0.00 <0.10 K/mcL LAB HEMETOLOGY METHOD 08/07/2024 1:45 PM EDT [facility] Neutrophils Relative 62.2 % LAB HEMETOLOGY METHOD 08/07/2024 1:45 PM EDT [facility] Lymphocytes Relative 25.1 % LAB HEMETOLOGY METHOD 08/07/2024 1:45 PM EDT [facility] Monocytes Relative 10.3 % LAB [facility] Eosinophils Relative 1.0 % LAB HEMETOLOGY METHOD 08/07/2024 1:45 PM EDT [facility] Basophils Relative 0.7 % LAB HEMETOLOGY METHOD 08/07/2024 1:45 PM EDT [facility] Immature Granulocytes Relative 0.7 % LAB HEMETOLOGY METHOD [facility]/07[facility] Neutrophils Absolute 5.88 1.50 - 7.00 K/mcL LAB HEMETOLOGY METHOD [facility]/07[facility] Lymphocytes Absolute 2.38 1.00 - 5.00 K/mcL LAB HEMETOLOGY METHOD 08/07/2024 1:45 PM EDT [facility] Monocytes Absolute 0.98 0.20 - 1.00 K/mcL LAB HEMETOLOGY METHOD 08/07/2024 1:45 PM EDT [facility] Eosinophils Absolute 0.09 0.00 - 0.50 K/mcL LAB HEMETOLOGY METHOD 08/07/2024 1:45 PM EDT [facility] Basophils Absolute 0.07 0.00 - 0.20 K/mcL LAB HEMETOLOGY METHOD 08/07/2024 1:45 PM EDT [facility] Immature Granulocytes Absolute 0.07(H) 0.00 - 0.03 K/mcL LAB HEMETOLOGY METHOD 08/07/2024 1:45 PM EDT [facility] Blood Venous blood specimen / Unknown Venipuncture / Unknown 08/07/2024 12:42 PM EDT 08/07/2024 1:39 PM EDT us Jah Middleton MD LAB BLOOD ORDERABLES Final Res ult Performing Organization Address City/[facility]/ZIP Co de Phone Number [facility] [address] [place] [address], * (ABNORMAL) Methylmalonic acid, serum (08/07/2024 12:42 PM EDT) Methylmalonic Acid 0.55(H) <0.40 umol/L 08/11/2024 3:06 AM EDT [facility] Comment: If applicable, any drug confirmation testing reported here was developed and the performance characteristics determined by [facility]. This confirmation testing has not been cleared or approved by the FDA. The laboratory is regulated under CLIA as qualified to perform high-complexity testing. This test is used for patient testing purposes. It should not be regarded as investigational or for research. Test performed at [facility], [address] , [place], [place] ??[address] ? [phone] Heidi Moreno MD, PhD - [employer] Blood Venous blood specimen / Unknown Venipuncture / Unknown 08/07/2024 12:42 PM EDT 08/07/2024 1:46 PM EDT Jah Middleton MD LAB BLOOD ORDERABLES Final Res ult [facility] [address] [place] [address] * Iron and TIBC (08/07/2024 12:42 PM EDT) Iron 73 50 - 160 mcg/dL LAB CHEMISTRY METHOD 08/07/2024 5:24 PM EDT [facility] TIBC 274 250 - 450 mcg/dL LAB CHEMISTRY METHOD 08/07/2024 5:24 PM EDT [facility] Iron Saturation 27 20 - 50 % LAB CHEMISTRY METHOD 08/07/2024 5:24 PM EDT [facility] Blood Venous blood specimen / Unknown Venipuncture / Unknown 08/07/2024 12:42 PM EDT 08/07/2024 1:48 PM EDT us Jah Middleton MD LAB BLOOD ORDERABLES Final Res ult Performing Organization Address [facility]/ZIP Co de Phone Number [facility] [address] [place] [address], [place] [phone] * Borrelia burgdorferi antibody (08/07/2024 12:42 PM EDT) [facility] Lyme Ab Negative Negative LAB CHEMISTRY METHOD 08/08/2024 8:38 AM EDT [facility] Comment: No laboratory evidence of infection with B. burgdorferi (Lyme disease). Negative results may occur in patients recently infected (<=14 days) with B. burgdorferi. ??If recent infection is suspected, repeat testing on a new sample collected in 7-14 days is recommended. Blood Venous blood specimen / Unknown Venipuncture / Unknown 08/07/2024 12:42 PM EDT 08/07/2024 1:46 PM EDT us Jah Middleton MD LAB BLOOD ORDERABLES Final Res ult [facility] [address] [place] [address], [place] [phone] * Vitamin B12 and folate (08/07/2024 12:42 PM EDT) [facility] Vitamin B-12 324 250 - 900 pcg/mL LAB CHEMISTRY METHOD 08/07/2024 5:24 PM EDT [facility] Folate 6.5 2.8 - 17.0 ng/ml LAB CHEMISTRY METHOD 08/07/2024 5:24 PM EDT [facility] Blood Venous blood specimen / Unknown Venipuncture / Unknown 08/07/2024 12:42 PM EDT 08/07/2024 1:48 PM EDT us Jah Middleton MD LAB BLOOD ORDERABLES Final Res ult [facility] [address] [place] [address], [place] [phone] * (ABNORMAL) Herpes simplex virus 1 and 2, IgG (08/07/2024 12:42 PM EDT) [facility] HSV 1 IgG 14.10(H) <=0.90 index tangela LAB CHEMISTRY METHOD 08/08/2024 8:37 AM EDT [facility] HSV-1 IgG Interpretation Positive(A) Negative LAB CHEMISTRY METHOD 08/08/2024 8:37 AM EDT [facility] HSV 2 IgG 0.21 <=0.90 index tangela LAB CHEMISTRY METHOD 08/08/2024 8:37 AM EDT [facility] HSV-2 IgG Interpretation Negative Negative LAB CHEMISTRY METHOD 08/08/2024 8:37 AM EDT [facility] Blood Venous blood specimen / Unknown Venipuncture / Unknown 08/07/2024 12:42 PM EDT 08/07/2024 1:46 PM EDT us Jah Middleton MD LAB BLOOD ORDERABLES Final Res ult [facility] [address] [place] [address], [place] [phone] * (ABNORMAL) Sedimentation rate (08/07/2024 12:42 PM EDT) [facility] Sed Rate 32(H) 0 - 20 mm/hr LAB HEMETOLOGY METHOD 08/07/2024 1:57 PM EDT [facility] Blood Venous blood specimen / Unknown Venipuncture / Unknown 08/07/2024 12:42 PM EDT 08/07/2024 1:39 PM EDT us Jah Middleton MD LAB BLOOD ORDERABLES Final Res ult [facility] [address] [place] [address], [place] [phone] * (ABNORMAL) Comprehensive metabolic panel (08/07/2024 12:42 PM EDT) [facility] Sodium 140 133 - 145 mmol/L LAB CHE[facility]STRY [facility] Potassium 4.4 3.5 - 5.5 mmol/L LAB CHEMISTRY METHOD 08/07/2024 11:[address] [facility] Chloride 107 96 - 110 mmol/L LAB CHEMISTRY METHOD 08/07/2024 11:[address] [facility] CO2 25 21 - 32 mmol/L LAB CHEMISTRY METHOD 08/07/2024 11:[address] [facility] Anion Gap 8 3 - 11 LAB CHEMISTRY METHOD 08/07/2024 11:[address] [facility] Glucose 100 70 - 100 mg/dL LAB CHEMISTRY METHOD 08/07/2024 11:[address] [facility] BUN 9 5 - 25 mg/dL LAB CHEMISTRY METHOD 08/07/2024 11:[address] [facility] Creatinine 1.67(H) 0.70 - 1.30 mg/dL LAB CHEMISTRY METHOD 08/07/2024 11:25 PM T [facility] eGFR 41(L) >=60 mL/min/1. 73m2 LAB CHEMISTRY METHOD 08/07/2024 11:[address] [facility] Comment:Calculation based on the??Chronic Kidney Disease Epidemiology Collaboration (CKD-EPI) equation refit??without adjustment for race. BUN/Creatinine Ratio 5.4 LAB CHEMISTRY METHOD 08/07/2024 11:25 PM EDT [facility] Calcium 10.2 8.5 - 10.5 mg/dL LAB CHEMISTRY METHOD 08/07/2024 11:[address] [facility] AST (SGOT) 8(L) 10 - 42 unit/L LAB CHEMISTRY METHOD 08/07/2024 11:[address] [facility] ALT (SGPT) 18 10 - 60 unit/L LAB CHEMISTRY METHOD 08/07/2024 11:[address] [facility] Alkaline Phosphatase 50 42 - 121 unit/L LAB CHEMISTRY METHOD 08/07/2024 11:[address] [facility] Total Protein 7.7 6.0 - 8.0 g/dL LAB CHEMISTRY METHOD 08/07/2024 11:[address] [facility] Albumin 3.8 3.2 - 5.0 g/dL LAB CHEMISTRY METHOD 08/07/2024 11:[address] [facility] Total Bilirubin 0.5 0.0 - 1.4 mg/dL LAB CHEMISTRY METHOD 08/07/2024 11:[address] [facility] Blood Venous blood specimen / Unknown Venipuncture / Unknown 08/07/2024 12:42 PM EDT 08/07/2024 1:48 PM EDT us Jah Middleton MD LAB BLOOD ORDERABLES Edited Re sult - Final [facility] [address] [place] [address], [place] [phone] * Uric acid (08/07/2024 12:42 PM EDT) [facility] Uric Acid 4.3 3.7 - 9.2 mg/dL LAB CHEMISTRY METHOD 08/07/2024 4:58 PM EDT [facility] Blood Venous blood specimen / Unknown Venipuncture / Unknown 08/07/2024 12:42 PM EDT 08/07/2024 1:48 PM EDT Jah Middleton MD LAB BLOOD ORDERABLES Final Res ult [facility] [address] [place] [address], [place] [phone] * Thyroid stimulating hormone (08/07/2024 12:42 PM EDT) [facility] TSH 0.75 0.40 - 4.00 mcIU/mL LAB CHEMISTRY METHOD 08/07/2024 5:19 PM EDT [facility] Blood Venous blood specimen / Unknown Venipuncture / Unknown 08/07/2024 12:42 PM EDT 08/07/2024 1:48 PM EDT Jah Middleton MD LAB BLOOD ORDERABLES Final Res ult [facility] [address] [place] [address], [place] [phone] * HIV 1,2 antibody, p24 antigen with reflex to differentiation (08/07/2024 12:42 PM EDT) [facility] HIV Combo AB/AG Negative Negative LAB CHEMISTRY METHOD 08/07/2024 11:25 PM EDT [facility] Blood Venous blood specimen / Unknown Venipuncture / Unknown 08/07/2024 12:42 PM EDT 08/07/2024 1:48 PM EDT Narrative [facility] - 08/07/2024 11:25 PM EDT This assay is a 4th generation assay allowing for earlier detection of HIV infection by detecting the presence of the HIV-1 p24 antigen as well as the traditional antibodies to HIV type 1 (including group O) and type 2. ??Use of a 4th generation assay is the current CDC recommendation for HIV screening. us Jah Middleton MD LAB BLOOD ORDERABLES Edited Re sult - Final [facility] [address] [place] [address], documented in this encounter Visit Diagnoses Diagnosis Postprocedural hypothyroidism Postsurgical hypothyroidism Encounter for general adult medical examination without abnormal findings Essential (primary) hypertension Unspecified essential hypertension Mild intermittent asthma, uncomplicated Unspecified osteoarthritis, unspecified site Age-related cognitive decline Memory loss Anemia, unspecified documented in this encounter Additional Health Concerns Infection Onset Date Last Indicated Resolved Time Herpes simplex 08/07/2024 08/07/2024 documented as of this encounter Care Teams Cd Reactor Operator Relationship Specialty Start Date End Date Yessi Parish MD [address] [place] [phone] PCP - General Internal Medicine 08/21/24 documented as of this encounter
--- OUTSIDE RECORDS SUMMARY | 2024-08-25 11:40 | XMS_ITS | Clinical Summary ---
Author Organization [employer] Address [address] [facility] [address] [place] [address] Care Team Providers Care Project Manager Entertainment And Media Name Role Phone Unavailable Primary Care Provider Unavailabl e Immunizations Name Administration Dates Next Due Influenza Quadrivalent Adjuvanted 01/27/2021 Influenza, High Dose Seasona l, Preservative Free 02/20/2022,01/21/2019,02/18/2014 Influenza, IIV3, injectable 01/24/2012,1 ,01/27/2010,03/28 Pfizer Covid-19 Vaccine 12+ Bivalent 08/14/2022, 04/20/2022 Pneumococcal Conjugate PCV 13 03/11/2017 Pneumococcal Polysaccharide PPSV23 04/22/2012, Zoster, Recombinant 12/22/2018,10/21/2018 Social History Tobacco Use Types Packs/Day Years Used Date Smoking Tobacco: Never Assessed Sex and Gender Information Value Date Recorded Sex Assigned at Male 02/19/2022 10:38 AM EDT Legal Sex Male 10:38 AM EDT Gender Identity Male 02/19/2022 10:38 AM EDT Sexual Orientation Straight 02/19/2022 10 :38 AM EDT Plan of Treatment Health Maintenance Due Date Last Done Comments Depression Screening 1945 Lipid Panel 1945 SDOH Screening 1945 Alcohol/Substance Use Screening 1957 Tobacco Screening 1957 Hepatitis C Screening 08/03/1963 DTaP/Tdap/Td Vaccines (1 - Tdap) 1964 RSV Patients and Patients Aged 60 years or older (1 - 1-dose 75+ series) 2020 COVID-19 Vaccine ( season) 2023 08/14/2022, 04/20/2022, 08/24/2021, Additional history exists Influenza Vaccine (#1) 2023 2, 01/27/2021, 01/21/2019, Additional history exists Pneumococcal Vaccine: 50+ Years Completed 03/11/2017, 04/22/2012, 10/02/2010 Zoster Vaccines Completed 12/22/2018, 10/21/2018 HIB Vaccines Aged Out No longer eligi ble based on patient's age to complete this topic HPV Vaccines Aged Out No longer eligi ble based on patient's age to complete this topic Hepatitis A Vaccines Aged Out No long er eligible based on patient's age to complete this topic Hepatitis B Vaccines Aged Out No long er eligible based on patient's age to complete this topic IPV Vaccines Aged Out No longer eligi ble based on patient's age to complete this topic Meningococcal Vaccine Aged Out No raffaele maryam eligible based on patient's age to complete this topic RSV under 20 months Aged Out No longe r eligible based on patient's age to complete this topic Rotavirus Vaccines Aged Out No longer eligible based on patient's age to complete this topic Insurance [address] [place] [address] [place] [address] [place] [address]
--- OUTSIDE RECORDS SUMMARY | 2024-08-25 11:40 | XMS_ITS | Encounter Summary ---
Author Organization [facility] Address [address] [address] Phone Care Team Providers Care Medical Secretary Teacher Name Role Phone Jah Middleton MD Primary Care Provider Unavail able Reason for Visit * Reason Comments Stage 3 chronic kidney disease, not othe rwise specified Encounter Details Date Type Department Care Team ([facility] st Contact Info) Description 08/21/2024 9:30 AM EDT Office Visit [facility] [place] [id number] [phone] Carlos Garcia MD [address] [phone] Stage 3 chronic kidney disease, not otherwise specified (HCC) (Primary Dx); Type 2 diabetes mellitus without complication (HCC); Hypertension Social History Tobacco Use Types Packs/Day Years Used Date Smoking Tobacco: Never Smokeless Tobacco: Never Alcohol Use Standard Drinks/Week Comments Yes 0 (1 standard drink = 0.6 oz pur e alcohol) Sex and Gender Information Value Date Recorded Sex Assigned at Not on file Legal Sex Male 5:08 PM EST Gender Identity Not on file Sexual Orientation Not on file documented as of this encounter Last Filed Vital Signs Vital Sign Reading Time Taken Comments Blood Pressure 138/78 08/21/2024 9:35 AM EDT Pulse 111 08/21/2024 9:35 AM EDT Temperature - - Respiratory Rate - - Oxygen Saturation 97% 08/21/2024 9:35 AM EDT Inhaled Oxygen Concentration - - Weight 106 kg (233 lb) 08/21/2024 9:35 AM EDT Height - - Body Mass Index 35.43 03/07/2020 12:00 PM EST documented in this encounter Progress Notes * Carlos Garcia MD - 08/21/2024 9:30 AM EDT [facility] Patient Name: Nate Vu, Male Date of : 1945, 79 y.o. Date: 08/21/2024 Referring MD: Iván Mckenzie MD PCP: Jah Middleton MD Chief Complaint: Chief Complaint Patient presents with Stage 3 chronic kidney disease, not otherwise specified Reason For Visit: I had the pleasure of seeing your patient for follow up of CKD. He was recently seen at [facility] back in June. The following portions of the patient's chart were reviewed in this encounter and updated as appropriate: Allergies Meds Problems Med Hx Surg Hx Fam Hx Constitutional: Negative for chills, fever, malaise/fatigue and weight loss. HENT: Negative for ear pain, hearing loss and tinnitus. Eyes: Negative for blurred vision, double vision, photophobia and pain. Respiratory: Negative for cough, hemoptysis, sputum production, shortness of breath and wheezing. Cardiovascular: Negative for chest pain, palpitations, orthopnea, claudication and leg swelling. Gastrointestinal: Negative for abdominal pain, diarrhea, nausea and vomiting. Genitourinary: Negative for dysuria, flank pain, frequency, hematuria and urgency. Musculoskeletal: Negative for myalgias. Skin: Negative for itching and rash. Neurological: Negative for dizziness, tingling and headaches. Psychiatric/Behavioral: Negative for depression. Full 13 point review of systems unremarkable except as noted above. Past Medical History: Diagnosis Date Arthralgia of bilateral temporomandibular joint 02/17/2021 Chronic kidney disease stage 3 (HCC) 02/17/2021 Gastroesophageal reflux disease 02/17/2021 Hyperlipidemia 02/17/2021 Hypertensive renal disease 02/17/2021 Obesity 02/17/2021 Personal history of prostate cancer 02/17/2021 Recurrent varicose vein of lower leg 02/17/2021 Type 2 diabetes mellitus (HCC) 02/17/2021 Past Surgical History: Procedure Laterality Date PROSTATECTOMY Social History Tobacco Use Smoking status: Never Smokeless tobacco: Never Substance Use Topics Alcohol use: Yes Family History Problem Relation Age of Onset Cancer Father Cancer Mother Current Outpatient Medications Medication Sig Dispense Refill cyanocobalamin 500 MCG tablet Take 1 Tablet by mouth daily for 360 days. Lantus SoloStar 100 UNIT/ML injection INJECT 35 UNITS INTO THE SKIN DAILY. losartan (COZAAR) 100 MG tablet Take 100 mg by mouth 1 (one) time each day NIFEdipine XL (PROCARDIA XL) 30 MG 24 hr tablet Take 30 mg by mouth pantoprazole (PROTONIX) 20 MG EC tablet Take 20 mg by mouth 1 (one) time each day before breakfast Do not crush, chew, or split. acetaminophen (TYLENOL) 325 MG tablet Take 1 tablet by mouth 1 (one) time each day atorvastatin (LIPITOR) 40 MG tablet Take 40 mg by mouth 1 (one) time each day ergocalciferol 1.25 MG (71821 UT) capsule TAKE 1 CAPSULE BY MOUTH ONE TIME PER WEEK 4 capsule 2 saccharomyces boulardii (FLORASTOR) 250 MG capsule Take 250 mg by mouth 2 (two) times a day (Patient not taking: Reported on 04/23/2024) triamcinolone (KENALOG) 0.1 % ointment Apply a thin film to the affected area 3- 4 times daily (Patient not taking: Reported on 04/23/2024) No current facility-administered medications for this visit. Allergies Allergen Reactions Aspirin Other (see comments) Hydrocodone-Acetaminophen Itching Penicillins Other (see comments) and Hives Objective: Vitals: 08/21/24 0935 BP: 138/78 BP Location: Right upper arm Patient Position: Sitting BP Cuff Size: Adult Pulse: (!) 111 SpO2: 97% Weight: 233 lb (106 kg) Constitutional: He is oriented to person, place, and time. He does not appear ill. Eyes: Pupils are equal, round, and reactive to light. Neck: No JVD present. Cardiovascular: Regular rhythm. He exhibits no edema. Pulmonary/Chest: Breath sounds normal. Abdominal: Soft. There is no abdominal tenderness. Musculoskeletal: Normal range of motion. Neurological: He is alert and oriented to person, place, and time. Skin: Skin is warm. Psychiatric: He has a normal mood and affect. EST GFR Date Value Ref Range Status 03/03/2020 69 ML/MIN/1.73 M2 Final Comment: Creatinine based estimated glomerular filtration rate (eGFR) is calculated using the Chronic Kidney Disease Epidemiology Collaboration (CKD-EPI). The CKD-EPI creatinine equation has not been validated in children (<18 years), women or in some racial or ethnic subgroups other than Caucasians and Americans. Testing performed or reported by ~[facility], ~a Service of [facility], ~[address] [place] [id number]~ Trisha Hartman MD, Intensive Care Nurse~ Est GFR Non Date Value Ref Range Status 04/01/2023 50 ML/MIN/1.73 M2 Final Comment: Creatinine based estimated glomerular filtration (eGFR) in adults is calculated using the National Kidney Foundation recommended 2020 CKD-EPI equation. Estimates GFR from serum creatinine, age and sex. Testing performed or reported by [facility], a Service of [facility], [address] [place] [id number] Immanuel Prater MD, Intensive Care Nurse [facility]# [id number] Chemistry Lab Units 08/07/24 1242 07/02/24 1040 06/22/24 0647 06/21/24 0600 06/20/24 0616 06/19/24 0518 06/18/24 2122 06/04/24 0756 05/07/24 0000 04/16/24 1237 04/01/23 1002 CREATININE mg/dL 1.67* 1.79* 1.48* 1.45* 1.7* 2.13* 1.93* 1.61* 1.8* < > 1.4* BUN mg/dL 9 13 11 12 16 21 20 8 10 < > 10 BUN / CREAT RATIO 5.4 7.3 7.4 8.3 9.4 9.9 10.4 5 5.6 < > -- EGFRNAFR ML/MIN/1.73 M2 -- -- -- -- -- -- -- -- -- -- 50 GLUCOSE mg/dL 100 101* 108* 109* 116* 89 111* 98 108* < > 214* POTASSIUM mmol/L 4.4 4.9 4.2 4 4.1 4.2 4.4 4.2 4.4 < > 4.5 SODIUM mmol/L 140 135 136 136 136 137 136 136 136 < > 138 CO2 mmol/L 25 22 29 28 26 23 23 26 24 < > 25 CHLORIDE mmol/L 107 106 101 103 105 105 105 107 106 < > 103 ALBUMIN g/dL 3.8 3.9 -- -- -- -- 3.8 3.8 4 -- 4.5 BILIRUBIN TOTAL mg/dL 0.5 0.5 -- -- -- -- 1.5* 0.6 0.6 -- -- AST unit/L 8* 18 -- -- -- -- 75* 17 14 -- -- < > = values in this interval not displayed. Bone Mineral Lab Units 08/07/24 1242 07/02/24 1040 06/22/24 0647 06/21/24 0600 06/20/24 0616 06/19/24 0518 06/18/24 2122 06/04/24 0756 05/07/24 0000 04/16/24 1237 04/01/23 1002 CALCIUM mg/dL 10.2 9.7 9.7 9 9.2 8.8 9.3 9.3 8.8 < > 9.7 PHOSPHORUS MG/DL -- -- -- -- -- -- -- -- -- -- 3.6 ALK PHOS unit/L 50 47 -- -- -- -- 54 50 54 -- -- < > = values in this interval not displayed. No lab exists for component: SPECGRAV , GLUCOSEUR , BILIRUBINUR , RBCUR , UPROTEIN , LEUKOCYTESUR , NITRITE Iron Studies Lab Units 08/07/24 1242 TIBC mcg/dL 274 IRON SATURATION % 27 PLAN: Assessment & Plan 1. Stage 3 chronic kidney disease, not otherwise specified (HCC) 2. Type 2 diabetes mellitus without complication (HCC) 3. 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 Kidney function is at a new baseline. Baseline serum creatinine is ~ 1.4 mg/dl. He does not have proteinuria. He has chronic kidney disease secondary to: -hypertensive kidney disease -residual kidney function loss from prior ANDREAS -nephron loss due to aging. He is on PPI which can cause chronic interstitial nephritis. Blood pressure is on target. He is on losartan. He has a history of prostate cancer. PLAN RAASi follow up with urology follow kidney function and electrolytes follow urine protein to creatinine ratio iPTH and vit D avoid NSAID low sodium diet Orders Placed This Encounter Renal funtion panel PTH, intact Vit D 25 hydroxy urine albumin / creatinine ratio Return in 6 months (on 02/21/2025). Carlos Garcia MD documented in this encounter Plan of Treatment Upcoming Encounters Date Type Department Care Team (Late st Contact Info) Description 02/22/2025 9:00 AM EST [facility] Visit [facility] [address] [address] Carlos Garcia MD [address] [place] [phone] 04/08/2025 2:45 PM EST Office Visit [facility] [address] [phone] Carlos Garcia MD [address] [place] [phone] Scheduled Orders Name Type Priority Associated Diagnoses Orde r Schedule Renal funtion panel Lab Routine Stage 3 chronic kidney disease, not otherwise specified (HCC) Expected: 08/21/2024, Expires: 09/21/2025 PTH, intact Lab Routine Stage 3 chronic kidney disease, not otherwise specified (HCC) Expected: 08/21/2024, Expires: 09/21/2025 Vit D 25 hydroxy Lab Routine Stage 3 chronic kidney disease, not otherwise specified (HCC) Expected: 08/21/2024, Expires: 09/21/2025 urine albumin / creatinine ratio Lab Routine Stage 3 chronic kidney disease, not otherwise specified (HCC) Expected: 08/21/2024, Expires: 09/21/2025 documented as of this encounter Visit Diagnoses Diagnosis Stage 3 chronic kidney disease, not otherwise specified (HCC)- Primary Type 2 diabetes mellitus without complication (HCC) Hypertension documented in this encounter Care Teams Medical Secretary Teacher Relationship Specialty Start Date End Date Jah Middleton MD [address] [phone] PCP - General Internal Medicine 04/23/24 documented as of this encounter
--- OUTSIDE RECORDS SUMMARY | 2024-08-25 11:40 | XMS_ITS | Clinical Summary ---
Author Organization [facility] [address] [place] [address] Address [address] [place] [address] Phone Care Team Providers Care Cloud Infrastructure Architect Name Role Phone Yessi Parish MD Primary Care Provider [phone] Allergies Active Allergy Reactions Criticality Noted Date Comments Aspirin GI intolerance,Headache,Rash 11/10/2009 Hydrocodone-Acetaminophen Itching 07/11/2011 Penicillins Hives 03/31/2009 Medications pen needle, diabetic (BD ULTRA-FINE SHORT PEN NEEDLE MISC) B-D ULTRAFINE III SHORT PEN 31G X 8 MM Misc APPLY 1 DOSE TOPICALLY 4 TIMES DAILY NEEDED 4 Active Bacillus coagulans/inuli n (PROBIOTIC FORMULA, INULIN, ORAL) Take 1 Tab by mouth daily. Active cyanocobalamin (VITAMIN B-12) 500 mcg tablet 3 Active pantoprazole (PROTONIX) 20 mg EC tablet Take 1 tablet (20 mg total) by mouth 1 (one) time each day. 90 tablet 1 5 Active losartan (COZAAR) 100 mg tablet TAKE 1 TABLET BY MOUTH EVERY DAY 90 tablet 1 5 Active NIFEdipine XL (PROCARDIA XL) 30 mg 24 hr tablet Take 1 tablet (30 mg total) by mouth 1 (one) time each day before breakfast. Do not crush, chew, or split. 30 each 11 5 06/23/19 26 Active OneTouch Ultra Test test stripIndication s:Type 2 diabetes mellitus with stage 3a chronic kidney disease, with long-term current use of insulin ([facility] V24, [facility] V28) Use to test blood sugars 3 times daily 300 each 3 5 Active freestyle 28 gauge lancetsIndicati ons:Type 2 diabetes mellitus with stage 3a chronic kidney disease, with long-term current use of insulin ([facility] V24, [facility] V28) Use to check blood sugars three times a day 300 each 3 5 Active insulin glargine (Lantus Solostar U-100 Insulin) 100 unit/mL (3 mL) injection pen Inject 28 Units into the skin daily. 5 Active Active Problems Problem Noted Date Diagnosed Date Traumatic rhabdomyolysis, initial encounter ([facility] V24) 06/19/2024 Type 2 diabetes mellitus wit h stage 3a chronic kidney disease, with long-term current use of insulin ([facility] V24, [facility] V28) 04/20/2024 Vitamin B12 deficiency 05/14/2022 Abscess of forehead 10/15/2017 Encounters Date Type Department Care Team Description 08/07/2024 12:50 PM EDT - 08/07/2024 11:59 PM EDT Hospital Encounter [facility] Xray [address] [place] [phone] Chronic cough Discharge Disposition: Home or Self Care 08/07/2024 Lab Requisition [facility] [address] [facility] [email or web address] [phone] Jah Middleton MD Postprocedural hypothyroidism; Encounter for general adult medical examination without abnormal findings; Essential (primary) hypertension; Mild intermittent asthma, uncomplicated; Unspecified osteoarthritis, unspecified site; Age-related cognitive decline; Anemia, unspecified 06/30/2024 Lab Requisition [facility] [address] [facility] [email or web address] [phone] Jah Middleton MD Rhabdomyolysis; Postprocedural hypothyroidism; Encounter for general adult medical examination without abnormal findings; Essential (primary) hypertension; Mild intermittent asthma, uncomplicated; Unspecified osteoarthritis, unspecified site; Urgency of urination; Type 2 diabetes mellitus with hyperglycemia ([facility] V24, [facility] V28) 06/25/2024 2:00 PM EST Office Visit Endocrinology [address] [phone] Tawana Sethi PA Type 2 diabetes mellitus with stage 3a chronic kidney disease, with long-term current use of insulin ([facility] V24, [facility] V28) (Primary Dx) 06/23/[address] [phone] Tawana Sethi PA Hospital Follow-up 06/18/2024 8:19 PM EST - 06/22/2024 3:33 PM EST Hospital Encounter [facility] Medical Surgical Unit [address] [place] [address] Yogesh Bolivar MD Zipagan, James T, MD Alam, Aroosa, MD Kela, Kashyap Devendrabhai, MD Traumatic rhabdomyolysis, initial encounter ([facility] V24) (Primary Dx) Discharge Disposition: Home-Health Care [facility] 06/03/2024 Lab Requisition [facility] [address] [facility] [place] [address] Jah Middleton MD Hyperlipidemia, unspecified; Encounter for screening for other viral diseases; Postprocedural hypothyroidism; Encounter for general adult medical examination without abnormal findings; Essential (primary) hypertension; Mild intermittent asthma, uncomplicated; Unspecified osteoarthritis, unspecified site; Vitamin D deficiency, unspecified; Anemia, unspecified; Type 2 diabetes mellitus with hyperglycemia ([facility] V24, [facility] V28) from Last 3 Months Immunizations Name Administration Dates Next Due Influenza trivalent, 0.5mL ( Fluad) 65yo and older 02/20/2022 Influenza trivalent, 0.5mL, preservative free (Fluarix; FluLaval; Fluzone) ages 6mo and older (Afluria) 3 years and older 01/24/2012,01/31/2011,01/27/2010,03/28 Pneumococcal conjugate 13 va lent (Prevnar 13, PCV13) 2mo and older 03/11/2017 Pneumococcal conjugate 20 va lent (Prevnar 20, PCV 20) 2mo and older 08/14/2023 Pneumococcal polysaccharide 23 valent (Pneumovax 23) 2yo and older 10/02/2010 Zoster Live 10/21/2018 Surgical History Surgery Date Site/Laterality Comments PROSTATECTOMY 2009 PROCEDURE: PROSTATECTOMY COLONOSCOPY 07/31/2010 PROCEDURE: VA COLONOSCOPY FLX DX W/COLLJ SPEC WHEN PFRMD; COMMENT: Normal Medical History Medical History Date Comments Hematuria 03/31/2009 DX:Hematuria History of prostate cancer 03/08/2010 DX:Hi story of prostate cancer; COMMENT: Surgery 2009, stage T1C. Follows up with Dr Guzman Hyperlipidemia 03/15/2010 DX:Hyperlipidemi a CKD (chronic kidney disease) stage 3, GFR 30-59 ml/min (CMS/HCC V24, CMS/HCC V28) 05/24/2010 DX:CKD (chronic kidney disea se) stage 3, GFR 30-59 ml/min ([facility]) Varicose veins of legs 08/03/2010 DX:Varico se veins of legs Type 2 diabetes mellitus wit h renal manifestations (CMS/HCC V24, CMS/HCC V28) 09/02/2017 DX:Type 2 diabetes mellitus with renal manifestations ([facility]) Esophageal reflux 01/18/2018 DX:Esophageal reflux Hypertension 09/02/2017 DX:Hypertension Obesity (BMI 30-39.9) 10/18/2016 DX:Obesity (BMI 30-39.9) Low back pain 07/11/2011 DX:Low back pain Lumbar radiculitis 10/10/2011 DX:Lumbar rad iculitis Arthralgia 11/13/2011 DX:Arthralgia Family History Relation Name Status Comments Brother Alive Father Mother Social History Tobacco Use Types Packs/Day Years Used Date Smoking Tobacco: Never Smokeless Tobacco: Never Tobacco Cessation:Counseling Given: Not Answered Alcohol Use Standard Drinks/Week Comments No 0 [...] Orientation Straight 06/18/2024 9: 57 PM EST Obstetrics History Last Filed Vital Signs Vital Sign Reading Time Taken Comments Blood Pressure 120/64 06/25/2024 2:01 PM EST Pulse 80 06/25/2024 2:01 PM EST Temperature 36.5 ??C (97.7 ??F) 06/25/2024 2:01 PM ES T Respiratory Rate 18 06/22/2024 8:00 AM EST Oxygen Saturation 98% 06/25/2024 2:01 PM EST Inhaled Oxygen Concentration - - Weight 108 kg (238 lb 12.8 oz) 06/25/2024 2:01 P M EST Height 172.7 cm (5' 8 ) 06/25/2024 2:01 PM EST Body Mass Index 36.31 06/25/2024 2:01 PM EST Plan of Treatment Upcoming Encounters Date Type Department Care Team (Late st Contact Info) Description 09/25/2024 1:00 PM EDT Office Visit Endocrinology - [place] [address] [place] [address] Tawana Sethi PA [address] [place] [address] Health Maintenance Due Date Last Done Comments DTaP,Tdap,and Td Vaccines (1 - Tdap) 1964 Zoster Vaccines (3 of 3) 02/16/2019 12/22/2018, 0705/2018 RSV Immunization Adult Patients (1 - 1-dose 75+ series) 2020 Depression Screening 03/30/2022 Medicare Annual Wellness Visit 03/30/2022 Social Influencers of Health Screening 03/30/2022 COVID-19 Vaccine (9 - Mixed Product risk season) 2024 01/01/2024, 08/14/2023, 08/14/2022, Additional history exists Diabetes: Annual Retina Eye Exam 08/28/2024 08/29/2023 Diabetes: Blood Sugar Control Test (HGBA1C) 01/02/2025 07/02/2024, 06/04/2024, 05/07/2024, Additional history exists Diabetes: Annual Urine Albumin-Creatinine Ratio (uACR) 01/08/2025 01/09/2024 Diabetes: Annual Foot Exam 06/19/2025 06/19/2024 Falls Risk Assessment 06/22/2025 06/22/2024 Diabetes: Annual GFR (Glomerular Filtration Rate) 08/07/2025 08/07/2024, 07/02/2024, 06/22/2024, Additional history exists Hypertension/CHF/CAD Annual BMP Blood Test 08/07/2025 08/07/2024, 07/02/2024, 06/22/2024, Additional history exists Cholesterol Screening (Lipid Panel) 06/04/2029 06/04/2024, 06/04/2024, 06/04/2024, Additional history exists Pneumococcal Vaccine: 50+ Years Completed 08/14/2023, 03/11/2017, 04/22/2012, Additional history exists Influenza Vaccine Completed 01/01/2024, , 02/20/2022, Additional history exists Hepatitis C Screening Completed 06/04/2024, 020 HIB Vaccines Aged Out No longer eligi [...] on patient's age to complete this topic MMR Vaccines Aged Out No longer eligi ble based on patient's age to complete this topic Meningococcal ACWY Vaccine Aged Out N o longer eligible based on patient's age to complete this topic Meningococcal B Vaccine Aged Out No l onger eligible based on patient's age to complete this topic RSV Immunization Patients Under 20 months Aged Out No longer eligible based on patient's age to complete this topic Varicella Vaccines Aged Out No longer eligible based on patient's age to complete this topic Procedures Procedure Name Priority Date/Time Associated Diagnosis Comments XR CHEST 2 VIEWS Routine 08/07/2024 1:01 PM EDT Chronic cough CBC WITH AUTO DIFFERENTIAL Routine 08/07/2024 12:42 PM EDT Mild intermittent asthma, uncomplicated METHYLMALONIC ACID, SERUM Routine 08/07/2024 12:42 PM EDT Age-related cognitive decline IRON AND TIBC Routine 08/07/2024 12:42 PM EDT Anemia, unspecified BORRELIA BURGDORFERI ANTIBODY Routine 08/07/2024 12:42 PM EDT Age-related cognitive decline VITAMIN B12 AND FOLATE Routine 12:42 PM EDT Anemia, unspecified HERPES SIMPLEX VIRUS 1 AND 2, IGG Routine 08/07/2024 12:42 PM EDT Age-related cognitive decline SEDIMENTATION RATE Routine 08/07/2024 12:42 PM EDT Unspecified osteoarthritis, unspecified site CBC AND DIFFERENTIAL Routine 08/07/2024 12:42 PM EDT Mild intermittent asthma, uncomplicated COMPREHENSIVE METABOLIC PANEL Routine 08/07/2024 12:42 PM EDT Essential (primary) hypertension URIC ACID Routine 08/07/2024 12:42 PM EDT Encounter for general adult medical examination without abnormal findings THYROID STIMULATING HORMONE Routine 08/07/2024 12:42 PM EDT Postprocedural hypothyroidism HIV 1, 2 ANTIBODY, P24 ANTIGEN WITH REFLEX TO DIFFERENTIATION Routine 08/07/2024 12:42 PM EDT BARNARD URINE CULTURE TUBE Routine 07/03/2024 8:54 AM EDT Urinary tract infection, site not specified URINALYSIS WITH REFLEX MICROSCOPIC AND CULTURE Routine 07/03/2024 8:54 AM EDT Urinary tract infection, site not specified URINALYSIS WITH REFLEX MICROSCOPIC AND CULTURE Routine 07/03/2024 8:54 AM EDT Urinary tract infection, site not specified CBC WITH AUTO DIFFERENTIAL Routine 07/02/2024 10:40 AM EDT Mild intermittent asthma, uncomplicated HEMOGLOBIN A1C Routine 07/02/2024 10:40 AM EDT Type 2 diabetes mellitus with hyperglycemia ([facility]) CREATINE KINASE Routine 07/02/2024 10:40 AM EDT SEDIMENTATION RATE Routine 07/02/2024 10:40 AM EDT Unspecified osteoarthritis, unspecified site CBC AND DIFFERENTIAL Routine 07/02/2024 10:40 AM EDT Mild intermittent asthma, uncomplicated COMPREHENSIVE METABOLIC PANEL Routine 07/02/2024 10:40 AM EDT Essential (primary) hypertension URIC ACID Routine 07/02/2024 10:40 AM EDT Encounter for general adult medical examination without abnormal findings THYROID STIMULATING HORMONE Routine 07/02/2024 10:40 AM EDT Postprocedural hypothyroidism MYOGLOBIN, SERUM Routine 07/02/2024 10:40 AM EDT Rhabdomyolysis ECG ANNOTATED 06/23/2024 POCT GLUCOSE BLOOD Routine 06/22/2024 11:07 AM EST POCT GLUCOSE BLOOD Routine 06/22/2024 8: 13 AM EST CBC WITH AUTO DIFFERENTIAL Routine 06/22/2024 6:47 AM EST CREATINE KINASE AND CKMB Routine 06/22/2024 6:47 AM EST BASIC METABOLIC PANEL Routine 06/22/2024 6:47 AM EST CBC AND DIFFERENTIAL Routine 06/22/2024 6:47 AM EST POCT GLUCOSE BLOOD Routine 06/21/2024 7: 26 PM EST POCT GLUCOSE BLOOD Routine 06/21/2024 4: 14 PM EST POCT GLUCOSE BLOOD Routine 06/21/2024 10:59 AM EST POCT GLUCOSE BLOOD Routine 06/21/2024 8: 14 AM EST CBC WITH AUTO DIFFERENTIAL Routine 06/21/2024 6:00 AM EST CREATINE KINASE AND CKMB Routine 06/21/2024 6:00 AM EST CBC AND DIFFERENTIAL Routine 06/21/2024 6:00 AM EST BASIC METABOLIC PANEL Routine 06/21/2024 6:00 AM EST POCT GLUCOSE BLOOD Routine 06/20/2024 7: 57 PM EST POCT GLUCOSE BLOOD Routine 06/20/2024 4: 34 PM EST POCT GLUCOSE BLOOD Routine 06/20/2024 11:18 AM EST POCT GLUCOSE BLOOD Routine 06/20/2024 8: 10 AM EST CBC WITH AUTO DIFFERENTIAL Routine 06/20/2024 6:16 AM EST CREATINE KINASE AND CKMB Routine 06/20/2024 6:16 AM EST BASIC METABOLIC PANEL Routine 06/20/2024 6:16 AM EST CBC AND DIFFERENTIAL Routine 06/20/2024 6:16 AM EST POCT GLUCOSE BLOOD Routine 06/19/2024 8: 49 PM EST POCT GLUCOSE BLOOD Routine 06/19/2024 4: 09 PM EST POCT GLUCOSE BLOOD Routine 06/19/2024 11:56 AM EST CREATINE KINASE AND CKMB Routine 06/19/2024 8:54 AM EST POCT GLUCOSE BLOOD Routine 06/19/2024 7: 52 AM EST CBC WITH AUTO DIFFERENTIAL Routine 06/19/2024 5:18 AM EST CBC AND DIFFERENTIAL Routine 06/19/2024 5:18 AM EST BASIC METABOLIC PANEL Routine 06/19/2024 5:18 AM EST CREATINE KINASE AND CKMB Routine 06/19/2024 5:18 AM EST POCT GLUCOSE BLOOD Routine 06/19/2024 3: 01 AM EST CULTURE BLOOD STAT 06/19/2024 1:22 AM EST CULTURE BLOOD STAT 06/19/2024 1:05 AM EST TROPONIN I HIGH SENSITIVITY STAT 06/18/2024 11:44 PM EST XR CHEST 2 VIEWS STAT 06/18/2024 10:[address] CERVICAL SPINE WO CONTRAST STAT 06/18/2024 10:[address] HEAD WO CONTRAST STAT 06/18/2024 10:33 PM EST URINALYSIS WITH REFLEX MICROSCOPIC STAT 06/18/2024 10:25 PM EST URINALYSIS WITH REFLEX MICROSCOPIC STAT 06/18/2024 10:25 PM EST TROPONIN I HIGH SENSITIVITY STAT 06/18/2024 10:25 PM EST [id number], RSV, FLU A AND B QUALITATIVE RT-PCR, INTERNAL LAB STAT 06/18/2024 10:25 PM EST BARNARD URINE CULTURE TUBE Routine 06/18/2024 10:10 PM EST EXTRA TUBES Routine 06/18/2024 10:10 PM EST THYROID STIMULATING HORMONE Add-On 06/18/2024 9:22 PM EST PROCALCITONIN STAT Add-on 06/18/2024 9:22 PM EST CREATINE KINASE STAT Add-on 06/18/2024 9:22 PM EST COMPREHENSIVE METABOLIC PANEL STAT 06/18/2024 9:22 PM EST CBC WITH AUTO DIFFERENTIAL STAT 06/18/2024 9:22 PM EST MAGNESIUM STAT 06/18/2024 9:22 PM EST CBC AND DIFFERENTIAL STAT 06/18/2024 9:22 PM EST ECG 12-LEAD STAT 06/18/2024 8:44 PM EST CBC WITH AUTO DIFFERENTIAL Routine 06/04/2024 7:56 AM EST Mild intermittent asthma, uncomplicated HEMOGLOBIN A1C Routine 06/04/2024 7:56 AM EST Type 2 diabetes mellitus with hyperglycemia ([facility]) VITAMIN B12 AND FOLATE Routine 7:56 AM EST Anemia, unspecified CHOLESTEROL, TOTAL Routine 06/04/2024 7: 56 AM EST Hyperlipidemia, unspecified VITAMIN D 25 HYDROXY Routine 06/04/2024 7:56 AM EST Vitamin D deficiency, unspecified SEDIMENTATION RATE Routine 06/04/2024 7: 56 AM EST Unspecified osteoarthritis, unspecified site CBC AND DIFFERENTIAL Routine 06/04/2024 7:56 AM EST Mild intermittent asthma, uncomplicated COMPREHENSIVE METABOLIC PANEL Routine 06/04/2024 7:56 AM EST Essential (primary) hypertension URIC ACID Routine 06/04/2024 7:56 AM EST Encounter for general adult medical examination without abnormal findings THYROID STIMULATING HORMONE Routine 06/04/2024 7:56 AM EST Postprocedural hypothyroidism HEPATITIS C ANTIBODY Routine 06/04/2024 7:56 AM EST Encounter for screening for other viral diseases LDL CHOLESTEROL, DIRECT Routine 06/04/2024 7:56 AM EST Hyperlipidemia, unspecified HDL CHOLESTEROL Routine 06/04/2024 7:56 AM EST Hyperlipidemia, unspecified URINE ALBUMIN CREATININE RATIO Routine 01/09/2024 DIABETES EYE EXAM Routine 08/29/2023 from Last 3 Months or Most Recently Relevant to Health Maintenance Results * XR Chest 2 Views (08/07/2024 1:01 PM EDT) Only the most recent of2 resultswithin the time period is included. Anatomical Region Laterality Modality Body Radiographic Nidia ging 08/10/2024 7:56 AM EDT Impressions 08/10/2024 7:58 AM EDT No acute chest disease. -------- FINAL REPORT -------- Dictated By: Rajendra Terry Dictated Date: 08/10/2024 07:56 ET Assigned Physician: Rajendra Terry Reviewed and Electronically Signed By: Rajendra Terry Signed Date: 08/10/2024 07:58 ET Workstation ID: [id number] Transcribed By: Self Edit Transcribed Date: 08/10/2024 07:56 ET Narrative 08/10/2024 7:58 AM EDT EXAMINATION: CHEST CLINICAL INFORMATION: Cough COMPARISON: Frontal view 06/18/24 TECHNIQUE: 2 views of the chest FINDINGS: There is rotation to the left with some kyphosis. There is no mediastinal or hilar mass. There is no vascular congestion or edema. No consolidation or major solid atelectasis. No pleural fluid or pneumothorax. There are osteophytes in the spine. Procedure Note Rajendra Terry MD - 08/10/2024 EXAMINATION: CHEST CLINICAL INFORMATION: Cough COMPARISON: Frontal view 06/18/24 TECHNIQUE: 2 views of the chest FINDINGS: There is rotation to the left with some kyphosis. There is no mediastinalor hilar mass. There is no vascular congestion or edema. No consolidation or major solid atelectasis. No pleural fluid orpneumothorax. There are osteophytes in the spine. IMPRESSION: No acute chest disease. -------- FINAL REPORT -------- Dictated By: Rajendra Terry Dictated Date: 08/10/2024 07:56 ET Assigned Physician: Rajendra Terry Reviewed and Electronically Signed By: Rajendra Terry Signed Date: 08/10/2024 07:58 ET Workstation ID: [id number] Transcribed By: Self Edit Transcribed Date: 08/10/2024 07:56 ET Jah Middleton MD IMG XR PROCEDURES Final Result * HIV 1,2 antibody, p24 antigen with reflex to differentiation (08/07/2024 12:42 PM EDT) HIV Combo AB/AG Negative Negative LAB CHEMISTRY METHOD 08/07/2024 11:25 PM EDT [facility] Blood Venous blood specimen / Unknown Venipuncture / Unknown 08/07/2024 12:42 PM EDT 08/07/2024 1:48 PM EDT Narrative [facility] - 08/07/2024 11:25 PM EDT This assay is a 4th generation assay allowing for earlier detection of HIV infection by detecting the presence of the HIV-1 p24 antigen as well as the traditional antibodies to HIV type 1 (including group O) and type 2. ??Use of a 4th generation assay is the current CDC recommendation for HIV screening. Jah Middleton MD LAB BLOOD ORDERABLES Edited Re sult - Final Performing Organization Address [facility]/ZIP Co de Phone Number [facility] [address] [place] [address], [place] [phone] * Vitamin B12 and folate (08/07/2024 12:42 PM EDT) Only the most recent of2 resultswithin the time period is included. [facility] Vitamin B-12 324 250 - 900 pcg/mL LAB CHEMISTRY METHOD 08/07/2024 5:24 PM EDT [facility] Folate 6.5 2.8 - 17.0 ng/ml LAB CHEMISTRY METHOD 08/07/2024 5:24 PM EDT [facility] Blood Venous blood specimen / Unknown Venipuncture / Unknown 08/07/2024 12:42 PM EDT 08/07/2024 1:48 PM EDT Jah Middleton MD LAB BLOOD ORDERABLES Final Res ult Performing Organization Address [facility]/ZIP Co de Phone Number [facility] [address] [place] [address], [place] [phone] * (ABNORMAL) Herpes simplex virus 1 and 2, IgG (08/07/2024 12:42 PM EDT) [facility] HSV 1 IgG 14.10(H) <=0.90 index tangela LAB CHEMISTRY METHOD 08/08/2024 8:37 AM EDT [facility] HSV-1 IgG Interpretation Positive(A) Negative LAB CHEMISTRY METHOD 08/08/2024 8:37 AM EDT [facility] HSV 2 IgG 0.21 <=0.90 index tangela LAB CHEMISTRY METHOD 08/08/2024 8:37 AM EDT [facility] HSV-2 IgG Interpretation Negative Negative LAB CHEMISTRY METHOD 08/08/2024 8:37 AM EDT [facility] Blood Venous blood specimen / Unknown Venipuncture / Unknown 08/07/2024 12:42 PM EDT 08/07/2024 1:46 PM EDT us Jah Middleton MD LAB BLOOD ORDERABLES Final Res ult [facility] [address] [place] [address], [place] [phone] * (ABNORMAL) CBC auto differential (08/07/2024 12:42 PM EDT) Only the most recent of8 resultswithin the time period is included. WBC 9.5 4.8 - 10.8 K/mcL LAB HEMETOLOGY METHOD 08/07/2024 1:45 PM EDT [facility] RBC 4.30(L) 4.50 - 5.50 M/mcL LAB HEMETOLOGY METHOD 08/07/2024 1:45 PM EDT [facility] Hemoglobin 12.1(L) 13.5 - 17.5 g/dL LAB HEMETOLOGY METHOD 08/07/2024 1:45 PM EDT [facility] Hematocrit 38.2(L) 42.0 - 54.0 % LAB HEMETOLOGY METHOD 08/07/2024 1:45 PM EDT [facility] MCV 89.9 79.0 - 98.0 FL LAB HEMETOLOGY METHOD 08/07/2024 1:45 PM EDT [facility] MCH 28.5 27.0 - 32.0 pcg LAB HEMETOLOGY METHOD 08/07/2024 1:45 PM EDT [facility] MCHC 31.7(L) 32.0 - 37.0 g/dL LAB HEMETOLOGY METHOD 08/07/2024 1:45 PM EDT [facility] RDW 12.7 11.0 - 15.0 % LAB HEMETOLOGY METHOD 08/07/2024 1:45 PM EDT [facility] Platelets 300 130 - 400 K/mcL LAB HEMETOLOGY METHOD [facility]/07[facility]24 [facility] MPV 9.4 7.0 - 11.0 FL LAB HEMETOLOGY METHOD 08/07/2024 1:45 PM EDT [facility] NRBC 0.0 <1.0 % LAB HEMETOLOGY METHOD 08/07/2024 1:45 PM EDT [facility] NRBC Absolute 0.00 <0.10 K/mcL LAB HEMETOLOGY METHOD 08/07/2024 1:[facility] Neutrophils Relative 62.2 % LAB HEMETOLOGY METHOD 08/07/2024 1:45 PM [facility] Lymphocytes Relative 25.1 % LAB HEMETOLOGY METHOD 08/07/2024 1:45 PM [facility] Monocytes Relative 10.3 % LAB HEMETOLOGY METHOD 08/07/2024 1:45 PM [facility] Eosinophils Relative 1.0 % LAB HEMETOLOGY METHOD 08/07/2024 1:45 PM [facility] Basophils Relative 0.7 % LAB HEMETOLOGY METHOD 08/07/2024 1:[facility] Immature Granulocytes Relative 0.7 % LAB HEMETOLOGY METHOD 08/07/2024 1:[facility] Neutrophils Absolute 5.88 1.50 - 7.00 K/mcL LAB HEMETOLOGY METHOD 08/07/2024 1:[facility] Lymphocytes Absolute 2.38 1.00 - 5.00 K/mcL LAB HEMETOLOGY METHOD 08/07/2024 1:45 PM EDT [facility] Monocytes Absolute 0.98 0.20 - 1.00 K/mcL LAB HEMETOLOGY METHOD 08/07/2024 1:45 PM EDT [facility] Eosinophils Absolute 0.09 0.00 - 0.50 K/mcL LAB HEMETOLOGY METHOD 08/07/2024 1:45 PM EDT [facility] Basophils Absolute 0.07 0.00 - 0.20 K/mcL LAB HEMETOLOGY METHOD 08/07/2024 1:45 PM EDT [facility] Immature Granulocytes Absolute 0.07(H) 0.00 - 0.03 K/[facility] LAB HEMETOLOGY METHOD 08/07/2024 1:45 PM EDT [facility] Blood Venous blood specimen / Unknown Venipuncture / Unknown 08/07/2024 12:42 PM EDT 08/07/2024 1:39 PM EDT Jah Middleton MD LAB BLOOD ORDERABLES Final Res ult [facility] [address] [place] [address], * (ABNORMAL) Methylmalonic acid, serum (08/07/2024 12:42 PM EDT) Methylmalonic Acid 0.55(H) <0.40 umol/L 08/11/2024 3:06 AM EDT [facility] Comment: If applicable, any drug confirmation testing reported here was developed and the performance characteristics determined by [facility]. This confirmation testing has not been cleared or approved by the FDA. The laboratory is regulated under CLIA as qualified to perform high-complexity testing. This test is used for patient testing purposes. It should not be regarded as investigational or for research. Test performed at [facility], [address], [place], [place] ??[address] ? [phone] Heidi Moreno MD, PhD - Puppy Walker Blood Venous blood specimen / Unknown Venipuncture / Unknown 08/07/2024 12:42 PM EDT 08/07/2024 1:46 PM EDT Jah Middleton MD LAB BLOOD ORDERABLES Final Res ult [facility] [address] [place] [address] * Iron and TIBC (08/07/2024 12:42 PM EDT) Pathologist [facility] Iron 73 50 - 160 mcg/dL LAB CHEMISTRY METHOD 08/07/2024 5:24 PM EDT [facility] TIBC 274 250 - 450 mcg/dL LAB CHEMISTRY METHOD 08/07/2024 5:24 PM EDT [facility] Iron Saturation 27 20 - 50 % LAB CHEMISTRY METHOD 08/07/2024 5:24 PM EDT [facility] Blood Venous blood specimen / Unknown Venipuncture / Unknown 08/07/2024 12:42 PM EDT 08/07/2024 1:48 PM EDT Jah Middleton MD LAB BLOOD ORDERABLES Final Res ult Performing Organization Address City/[facility]/ZIP Co de Phone Number [facility] [address] [place] [address], [place] [phone] * Borrelia burgdorferi antibody (08/07/2024 12:42 PM EDT) [facility] Lyme Ab Negative Negative LAB CHEMISTRY METHOD 08/08/2024 8:38 AM EDT [facility] Comment: No laboratory evidence of [...] MD LAB BLOOD ORDERABLES Final Res ult [facility] [address] [place] [address], [place] [phone] * (ABNORMAL) Sedimentation rate (08/07/2024 12:42 PM EDT) Only the most recent of3 resultswithin the time period is included. Sed Rate 32(H) 0 - 20 mm/hr LAB HEMETOLOGY METHOD 08/07/2024 1:57 PM EDT [facility] Blood Venous blood specimen / Unknown Venipuncture / Unknown 08/07/2024 12:42 PM EDT 08/07/2024 1:39 PM EDT Jah Middleton MD LAB BLOOD ORDERABLES Final Res ult Performing Organization Address [facility]/ZIP Co de Phone Number [facility] [address] [place] [address], [place] [phone] * Uric acid (08/07/2024 12:42 PM EDT) Only the most recent of3 resultswithin the time period is included. Uric Acid 4.3 3.7 - 9.2 mg/dL LAB CHEMISTRY METHOD 08/07/2024 4:58 PM EDT [facility] Blood Venous blood specimen / Unknown Venipuncture / Unknown 08/07/2024 12:42 PM EDT 08/07/2024 1:48 PM EDT Jah Middleton MD LAB BLOOD ORDERABLES Final Res ult Performing Organization Address City/[facility]/ZIP Co de Phone Number [facility] [address] [place] [address], [place] [phone] * Thyroid stimulating hormone (08/07/2024 12:42 PM EDT) Only the most recent of4 resultswithin the time period is included. Pathologist [facility] TSH 0.75 0.40 - 4.00 mcIU/mL LAB CHEMISTRY METHOD 08/07/2024 5:19 PM EDT [facility] Blood Venous blood specimen / Unknown Venipuncture / Unknown 08/07/2024 12:42 PM EDT 08/07/2024 1:48 PM EDT us Jah Middleton MD LAB BLOOD ORDERABLES Final Res ult [facility] [address] [place] [address], [place] [phone] * (ABNORMAL) Comprehensive metabolic panel (08/07/2024 12:42 PM EDT) Only the most recent of4 resultswithin the time period is included. [facility] Sodium 140 133 - 145 mmol/L LAB CHEMISTRY METHOD 08/07/2024 11:25 PM [facility] Potassium 4.4 3.5 - 5.5 mmol/L LAB CHEMISTRY METHOD 08/07/2024 11:25 PM [facility] Chloride 107 96 - 110 mmol/L LAB CHEMISTRY METHOD 08/07/2024 11:25 PM [facility] CO2 25 21 - 32 mmol/L LAB CHEMISTRY METHOD 08/07/2024 11:25 PM [facility] Anion Gap 8 3 - 11 LAB CHEMISTRY METHOD 08/07/2024 11:25 PM [facility] Glucose 100 70 - 100 mg/dL LAB CHEMISTRY METHOD 08/07/2024 11:25 PM [facility] BUN 9 5 - 25 mg/dL LAB CHEMISTRY METHOD 08/07/2024 11:25 PM [facility] Creatinine 1.67(H) 0.70 - 1.30 mg/dL LAB CHEMISTRY METHOD 08/07/2024 11:25 PM T [facility] eGFR 41(L) >=60 mL/min/1. 73m2 LAB CHEMISTRY METHOD 08/07/2024 11:25 PM [facility] Comment:Calculation based on the??Chronic Kidney Disease Epidemiology Collaboration (CKD-EPI) equation refit??without adjustment for race. BUN/Creatinine Ratio 5.4 LAB CHEMISTRY METHOD 08/07/2024 11:25 PM EDT [facility] Calcium 10.2 8.5 - 10.5 mg/dL LAB CHEMISTRY METHOD 08/07/2024 11:25 PM [facility] AST (SGOT) 8(L) 10 - 42 unit/L LAB CHEMISTRY METHOD 08/07/2024 11:25 PM [facility] ALT (SGPT) 18 10 - 60 unit/L LAB CHEMISTRY METHOD 08/07/2024 11:25 PM [facility] Alkaline Phosphatase 50 42 - 121 unit/L LAB CHEMISTRY METHOD 08/07/2024 11:25 PM [facility] Total Protein 7.7 6.0 - 8.0 g/dL LAB CHEMISTRY METHOD 08/07/2024 11:25 PM [facility] Albumin 3.8 3.2 - 5.0 g/dL LAB CHEMISTRY METHOD 08/07/2024 11:25 PM [facility] Total Bilirubin 0.5 0.0 - 1.4 mg/dL LAB CHEMISTRY METHOD 08/07/2024 11:25 PM [facility] Blood Venous blood specimen / Unknown Venipuncture / Unknown 08/07/2024 12:42 PM EDT 08/07/2024 1:48 PM EDT us Jah Middleton MD LAB BLOOD ORDERABLES Edited Re sult - Final [facility] [address] [place] [address], [place] [phone] * (ABNORMAL) Urinalysis with reflex microscopic and culture (07/03/2024 8:54 AM EDT) Specific [place] Urine 1.013 1.003 - 1.030 LAB URINALYSIS - AUTOMATED METHOD 07/03/2024 9:37 AM [facility] pH, Urine 5.5 5.0 - 8.0 pH LAB URINALYSIS - AUTOMATED METHOD 07/03/2024 9:37 AM [facility] Leukocytes, Urine Negative Negative LAB URINALYSIS - AUTOMATED METHOD 07/03/2024 9:37 AM [facility] Nitrite, Urine Negative Negative LAB URINALYSIS - AUTOMATED METHOD 07/03/2024 9:37 AM [facility] Protein, Urine Negative <=Trace mg/dL LAB URINALYSIS - AUTOMATED METHOD 07/03/2024 9:37 AM [facility] Glucose, Urine 250(A) Negative mg/dL LAB URINALYSIS - AUTOMATED METHOD 07/03/2024 9:37 AM [facility] Ketones, Urine Negative Negative mg/dL LAB URINALYSIS - AUTOMATED METHOD 07/03/2024 9:37 AM [facility] Urobilinogen, Urine 0.2 0.2 - 1.0 mg/dL LAB URINALYSIS - AUTOMATED METHOD 07/03/2024 9:37 AM [facility] Bilirubin, Urine Negative Negative LAB URINALYSIS - AUTOMATED METHOD 07/03/2024 9:37 AM [facility] Blood, Urine Negative Negative LAB URINALYSIS - AUTOMATED METHOD 07/03/2024 9:37 AM [facility] Urine Urine specimen obtained by clean catch procedure / Unknown Non-blood Collection / Unknown 07/03/2024 8:54 AM EDT 07/03/2024 9:26 AM EDT Jah Middleton MD LAB URINE ORDERABLES Final Res ult Performing Organization Address [facility]/ZIP Co de Phone Number [facility] [address] [place] [address], [place] [phone] * Barnard urine culture tube (07/03/2024 8:54 AM EDT) Only the most recent of2 resultswithin the time period is included. Extra Tube Hold for add-ons. 07/03/2024 11:01 AM EDT [facility] Comment:Auto resulted. Urine Urine specimen obtained by clean catch procedure / Unknown Non-blood Collection / Unknown 07/03/2024 8:54 AM EDT 07/03/2024 9:26 AM EDT Jah Middleton MD LAB URINE ORDERABLES Final Res ult Performing Organization Address [facility] Co de Phone Number [facility] [address] [place] [address], [place] [phone] * Myoglobin, serum (07/02/2024 10:40 AM EDT) Myoglobin 46 <=72 ng/mL 07/06/2024 2:27 AM EDT [facility] Comment: REFERENCE INTERVAL: Myoglobin Serum Access complete set of age- and/or gender-specific reference intervals for this test in the [employer] [facility] Test Directory ([employer]). Performed By: [facility] [address] [place] [id number] [employer] Edge Tape Sewer: Salazar Brooks MD, PhD CLIA Number: [id number] Blood Venous blood specimen / Unknown Venipuncture / Unknown 07/02/2024 10:40 AM EDT 07/02/2024 10:46 AM EDT Jah Middleton MD LAB BLOOD ORDERABLES Final Res ult [facility] [address] [place] [address] * Hemoglobin A1c (07/02/2024 10:40 AM EDT) Only the most recent of2 resultswithin the time period is included. Hemoglobin A1C 5.0 <6.5 % LAB CHEMISTRY METHOD 07/02/2024 1:42 PM EDT [facility] Mean Bld Glu Estim. 97 mg/dL LAB CHEMISTRY METHOD 07/02/2024 1:42 PM EDT [facility] Blood Venous blood specimen / Unknown Venipuncture / Unknown 07/02/2024 10:40 AM EDT 07/02/2024 10:45 AM EDT Jah Middleton MD LAB BLOOD ORDERABLES Final Res ult Performing Organization Address City/[facility]/ZIP Co de Phone Number [facility] [address] [place] [address], [place] [phone] * Creatine kinase (07/02/2024 10:40 AM EDT) Only the most recent of2 resultswithin the time period is included. [facility] Total CK 107 22 - 269 unit/L LAB CHEMISTRY METHOD 07/02/2024 12:44 PM EDT [facility] Blood Venous blood specimen / Unknown Venipuncture / Unknown 07/02/2024 10:40 AM EDT 07/02/2024 10:47 AM EDT Jah Middleton MD LAB BLOOD ORDERABLES Final Res ult Performing Organization Address City/[facility]/ZIP Co de Phone Number [facility] [address] [place] [address], [place] [phone] * ECG-Annotated (06/23/2024) us Provider Onbase ECG ORDERABLES Final Result * (ABNORMAL) POCT Glucose, blood (06/22/2024 11:07 AM EST) Only the most recent of15 resultswithin the time period is included. [facility] Glucose POCT 125(H) 70 - 100 mg/dL 06/22/2024 11:08 AM EST [facility] Blood Capillary blood specimen / Unknown 06/22/2024 11:07 AM EST 06/22/2024 11:11 AM EST Omid Allred MD LAB POINT O F CARE TEST DOCKED DEVICE UNSOLICITED RESULTS Final Result Performing Organization Address [facility]/ZIP Co de Phone Number [facility] [address] [place] [address], * (ABNORMAL) Creatine kinase and CKMB (06/22/2024 6:47 AM EST) Only the most recent of5 resultswithin the time period is included. [facility] Total CK 501(H) 22 - 269 unit/L LAB CHEMISTRY METHOD 06/22/2024 8:04 AM EST [facility] CK-MB 1.7 1.0 - 3.6 ng/mL LAB CHEMISTRY METHOD 06/22/2024 8:[address] [facility] CK-MB Index 0.0 0.0 - 5.0 LAB CHEMISTRY METHOD 06/22/2024 8:04 AM EST [facility] Blood Venous blood specimen / Unknown Venipuncture / Unknown 06/22/2024 6:47 AM EST 06/22/2024 7:06 AM EST Kevin Chan MD LAB BLOOD ORDERABLES Final Re sult Performing Organization Address City/[facility]/ZIP Co de Phone Number [facility] [address] [place] [address], [place] [phone] * (ABNORMAL) Basic metabolic panel (06/22/2024 6:47 AM EST) Only the most recent of4 resultswithin the time period is included. Sodium 136 133 - 145 mmol/L LAB CHEMISTRY METHOD 06/22/2024 7:[address] [facility] Potassium 4.2 3.5 - 5.5 mmol/L LAB CHEMISTRY METHOD 06/22/2024 7:[address] [facility] Chloride 101 96 - 110 mmol/L LAB CHEMISTRY METHOD 06/22/2024 7:[address] [facility] CO2 29 21 - 32 mmol/L LAB CHEMISTRY METHOD 06/22/2024 7:[address] [facility] Anion Gap 6 3 - 11 LAB CHEMISTRY METHOD 06/22/2024 7:[address] [facility] Glucose 108(H) 70 - 100 mg/dL LAB CHEMISTRY METHOD 06/22/2024 7:[address] [facility] BUN 11 5 - 25 mg/dL LAB CHEMISTRY METHOD 06/22/2024 7:[address] [facility] Creatinine 1.48(H) 0.70 - 1.30 mg/dL LAB CHEMISTRY METHOD 06/22/2024 7:[address] [facility] eGFR 48(L) >=60 mL/min/1. 73m2 LAB CHEMISTRY METHOD 06/22/2024 7:[address] [facility] Comment:Calculation based on the??Chronic Kidney Disease Epidemiology Collaboration (CKD-EPI) equation refit??without adjustment for race. BUN/Creatinine Ratio 7.4 LAB CHEMISTRY METHOD 06/22/2024 7:[address] [facility] Calcium 9.7 8.5 - 10.5 mg/dL LAB CHEMISTRY METHOD 06/22/2024 7:[address] [facility] Blood Venous blood specimen / Unknown Venipuncture / Unknown 06/22/2024 6:47 AM EST 06/22/2024 7:06 AM EST Kevin Chan MD LAB BLOOD ORDERABLES Final Re sult Performing Organization Address City/[facility]/ZIP Co de Phone Number [facility] [address] [place] [address], [place] [phone] * Blood Culture, Peripheral Draw #2 (06/19/2024 1:22 AM EST) Only the most recent of2 resultswithin the time period is included. [facility] Culture, Blood No growth at 5 days LAB MICROBIOLOGY METHOD 06/24/2024 6:01 AM EST [facility] Blood Venous blood specimen / Unknown Venipuncture / Unknown 06/19/2024 1:22 AM EST 06/19/2024 1:36 AM EST Yogesh Bolivar MD LAB MICROBIOLOGY - GENERAL ORDERABLES Final Result Performing Organization Address [facility] de Phone Number [facility] [address] [place] [address], [place] [phone] * Troponin I high sensitivity (06/18/2024 11:44 PM EST) Only the most recent of2 resultswithin the time period is included. [facility] High Sensitivity Troponin I 32 <=79 ng/L LAB CHEMISTRY METHOD 06/19/2024 1:37 AM EST [facility] Blood Venous blood specimen / Unknown Venipuncture / Unknown 06/18/2024 11:44 PM EST 06/19/2024 1:09 AM EST Narrative [facility] - 06/19/2024 1:37 AM EST High levels of biotin in samples may falsely decrease hsTroponin values. ??Use caution when interpreting hsTroponin results in patients taking biotin who exhibit renal impairment (eGFR <60) or in patients taking more than 20 mg/day of biotin. Isaak BISHOP LAB BLOOD ORDERABLES Final Resul t [facility] [address] [place] [address], * CT Cervical Spine wo Contrast (06/18/2024 10:33 PM EST) Anatomical Region Laterality Modality Spine, C-spine Computed Tomogra phy 06/18/2024 11:3 2 PM EST Impressions 06/18/2024 11:32 PM EST 1. No acute fracture of the cervical spine. 2. Partial straightening of the normal cervical lordosis. . 3. Multilevel facet and uncovertebral joint arthropathy. This document has been electronically signed by: Lance Glass DO on 06/18/2024 23:32:33 Narrative 06/18/2024 11:32 PM EST INDICATION: Neck trauma (Age >= 65y) CT cervical spine without contrast Comparison: None Findings: No acute cervical spine fracture or dislocation. Vertebral alignment is within normal limits. Partial straightening of the normal cervical lordosis. Multilevel facet and uncovertebral joint arthropathy. No cervical fluid collections or masses. The visualized thyroid unremarkable. No consolidation or effusion at the lung apices. Visualized intracranial contents are unremarkable. Procedure Note Lance Glass MD - 06/18/2024 INDICATION: Neck trauma (Age >= 65y) CT cervical spine without contrast Comparison: None Findings: No acute cervical spine fracture or dislocation. Vertebral alignment is within normal limits. Partial straightening of the normal cervical lordosis. Multilevel facet and uncovertebral joint arthropathy. No cervical fluid collections or masses. The visualized thyroid unremarkable. No consolidation or effusion at the lung apices. Visualized intracranial contents are unremarkable. IMPRESSION: 1. No acute fracture of the cervical spine. 2. Partial straightening of the normal cervical lordosis. . 3. Multilevel facet and uncovertebral joint arthropathy. This document has been electronically signed by: Lance Glass DO on 06/18/2024 23:32:[address] PROCEDURES Final Result * CT Head wo Contrast (06/18/2024 10:33 PM EST) Anatomical Region Laterality Modality Head and Neck Computed Tomogra phy 06/18/2024 10:5 7 PM EST Impressions 06/18/2024 10:57 PM EST 1. No acute intracranial process. 2. Subcortical/periventricular white matter hypoattenuation statistically representing changes of chronic microvascular ischemia. Age related global parenchymal volume loss. This document has been electronically signed by: Lance Glass DO on 06/18/2024 22:57:34 Narrative 06/18/2024 10:57 PM EST INDICATION: Head trauma, minor (Age >= [address]y) CT head without contrast Comparison: None Findings: No intracranial mass, midline shift, hydrocephalus, or acute hemorrhage. Subcortical/periventricular white matter hypoattenuation statistically representing changes of chronic microvascular ischemia. Age related global parenchymal volume loss. The visualized paranasal sinuses and mastoid air cells are normal. The orbits are unremarkable. No skull fracture. Chronic appearing right medial orbital wall fracture Procedure Note Lance Glass MD - 06/18/2024 INDICATION: Head trauma, minor (Age >= 65y) CT head without contrast Comparison: None Findings: No intracranial mass, midline shift, hydrocephalus, or acute hemorrhage. Subcortical/periventricular white matter hypoattenuation statistically representing changes of chronic microvascular ischemia. Age relatedglobal parenchymal volume loss. The visualized paranasal sinuses and mastoid air cells are normal. The orbits are unremarkable. No skull fracture. Chronic appearing right medial orbital wall fracture IMPRESSION: 1. No acute intracranial process. 2. Subcortical/periventricular white matter hypoattenuationstatistically representing changes of chronic microvascular ischemia. Age relatedglobal parenchymal volume loss. This document has been electronically signed by: Lance Glass DO on 06/18/2024 22:57:34 Isaak BISHOP [facility] [place]ED[place] Final Result * (ABNORMAL) Urinalysis with reflex microscopic (06/18/2024 10:25 PM EST) Specific [place] Urine 1.009 1.003 - 1.030 LAB URINALYSIS - AUTOMATED METHOD 06/18/2024 11:05 PM EST [facility] pH, Urine 6.0 5.0 - 8.0 pH LAB URINALYSIS - AUTOMATED METHOD 06/18/2024 11:[address] [facility] Leukocytes, Urine Trace(A) Negative LAB URINALYSIS - AUTOMATED METHOD 06/18/2024 11:[address] [facility] Nitrite, Urine Negative Negative LAB URINALYSIS - AUTOMATED METHOD 06/18/2024 11:[address] [facility] Protein, Urine 30(A) <=Trace mg/dL LAB URINALYSIS - AUTOMATED METHOD 06/18/2024 11:[address] [facility] Glucose, Urine Negative Negative mg/dL LAB URINALYSIS - AUTOMATED METHOD 06/18/2024 11:[address] [facility] Ketones, Urine Negative Negative mg/dL LAB URINALYSIS - AUTOMATED METHOD 06/18/2024 11:[address] [facility] Urobilinogen , Urine 0.2 0.2 - 1.0 mg/dL LAB URINALYSIS - AUTOMATED METHOD 06/18/2024 11:[address] [facility] Bilirubin, Urine Negative Negative LAB URINALYSIS - AUTOMATED METHOD 06/18/2024 11:[address] [facility] Blood, Urine Moderate(A) Negative LAB URINALYSIS - AUTOMATED METHOD 06/18/2024 11:[address] [facility] RBC, Urine 2.1 0 - 4 /HPF LAB URINALYSIS - AUTOMATED METHOD 06/18/2024 11:[address] [facility] WBC, Urine 5.2(H) 0 - 4 /HPF LAB URINALYSIS - AUTOMATED METHOD 06/18/2024 11:[address] [facility] Squamous Epithelial, Urine 29 0 - 60 /LPF LAB URINALYSIS - AUTOMATED METHOD 06/18/2024 11:[address] [facility] Bacteria, Urine Few(A) Negative /HPF LAB URINALYSIS - AUTOMATED METHOD 06/18/2024 11:[address] [facility] Hyaline Casts, Urine 1.2 0 - 3 /LPF LAB URINALYSIS - AUTOMATED METHOD 06/18/2024 11:05 PM EST [facility] Urine Urine specimen obtained by clean catch procedure / Unknown Non-blood Collection / Unknown 06/18/2024 10:25 PM EST 06/18/2024 10:41 PM EST Isaak BISHOP LAB URINE ORDERABLES Final Resul t [facility] [address] [place] [address], [place] [phone] * [id number], RSV, Influenza A and B qualitative RT-PCR (06/18/2024 10:25 PM EST) Influenza A PCR Not Detected Not Detected LAB MICROBIOLOGY METHOD 06/18/2024 11:25 PM EST [facility] Influenza B PCR Not Detected Not Detected LAB MICROBIOLOGY METHOD 06/18/2024 11:25 PM EST [facility] RSV PCR Not Detected Not Detected LAB MICROBIOLOGY METHOD 06/18/2024 11:25 PM EST [facility] SARS COV-2 Not Detected Not Detected LAB MICROBIOLOGY METHOD 06/18/2024 11:25 PM EST [facility] Swab Both anterior nares / Unknown Non-blood Collection / Unknown 06/18/2024 10:25 PM EST 06/18/2024 10:41 PM EST Narrative [facility] - 06/18/2024 11:25 PM EST Disclaimer: ??Testing was performed using the [employer] GeneXpert Xpress SARS-CoV-2 _Flu_RSV PLUS PCR assay. ??The manner in which this information is used to guide patient care is the responsibility of the healthcare provider. ??Results should be correlated with the clinical history, epidemiological data, and other data available to the clinician evaluating the patient. ??Negative results do not preclude infection. ??This test has been authorized by the FDA under an Emergency Use Authorization (EUA). ??This test is only authorized for the duration of time the declaration that circumstances exist justifying the authorization of the emergency use of in vitro diagnostic tests for detection of SARS-CoV-2 virus and/or diagnosis of COVID-19 infection under section 564 (b) (1) of the Act, 21 U.S.C 360bbb-3 (b) (1), unless the authorization is terminated or revoked sooner. ?? Reference Range: Not Detected Fact sheet for Healthcare providers can be found at https://www.fda.gov/media/881870/download. ?? Fact sheet for Healthcare patients can be found at https://www.fda.gov/media/926038/download. Isaak BISHOP LAB MICROBIOLOGY - GENERAL ORDER DOMINIC Final Result [facility] [address] [place] [address], * (ABNORMAL) Procalcitonin (06/18/2024 9:22 PM EST) Procalcitonin 0.22(H) <=0.16 ng/mL LAB CHEMISTRY METHOD 06/19/2024 10:53 AM EST [facility] Blood Venous blood specimen / Unknown Venipuncture / Unknown 06/18/2024 9:22 PM EST 06/18/2024 9:26 PM EST Narrative [facility] - 06/19/2024 10:53 AM EST Procalcitonin > 2.00 ng/ml: Procalcitonin Levels above 2.00 ng/ml, on the first day of ICU admission represent a high risk for progression to severe sepsis and/or septic shock. Procalcitonin < 0.50 ng/ml: Procalcitonin levels below 0.50 ng/ml on the first day of ICU admission represent a low risk for progression to severe sepsis and/or septic shock. Concentrations <0.5 ng/mL do not exclude an infection, on account of local ized infections (without systemic signs) which can be associated with such low concentrations, or a systemic infection in its initial stages (<6 hours). Furthermore, increased procalcitonin can occur without infection. PCT concentrations between 0.5 and 2.0 ng/mL should be interpreted taking into account the patient's history. It is recommended to retest PCT within 6-24 hours if any concentrations <2.0 ng/mL are obtained. us Yogesh Bolivar MD LAB BLOOD ORDERABLES Final Result Performing Organization Address [facility] de Phone Number [facility] [address] [place] [address], [place] [phone] * Magnesium (06/18/2024 9:22 PM EST) [facility] Magnesium 2.3 1.9 - 2.6 mg/dL LAB CHEMISTRY METHOD 06/18/2024 9:52 PM EST [facility] Blood Venous blood specimen / Unknown Venipuncture / Unknown 06/18/2024 9:22 PM EST 06/18/2024 9:26 PM EST us Yogesh Bolivar MD LAB BLOOD ORDERABLES Final Result Performing Organization Address [facility] de Phone Number [facility] [address] [place] [address], [place] [phone] * ECG 12 lead (06/18/2024 8:44 PM EST) [facility] Ventricular Rate ECG 84 BPM GEMUSE Atrial Rate 84 BPM GEMUSE P-R Interval 120 ms GEMUSE QRS Duration 82 ms GEMUSE Q-T Interval 402 ms GEMUSE QTc 475 ms GEMUSE R [place] 8 degrees GEMUSE T [place] 40 degrees GEMUSE ECG Interpretation Ectopic atrial rhythm Otherwise normal ECG When compared with ECG of 03-JAN-2022 12:36, No significant changes are noted Confirmed by CEFERINO DOMÍNGUEZ ([id number]) on 06/19/2024 7:24:16 AM GEMUSE 06/18/2024 8:44 PM EST 06/19/2024 7:24 AM EST Yogesh Bolivar MD ECG ORDERABLES Final Resul t Performing Organization Address City/[facility]/ZIP Co de Phone Number GEMUSE * Hepatitis C antibody (06/04/2024 7:56 AM EST) Hepatitis C Antibody Negative Negative LAB CHEMISTRY METHOD 06/09/2024 7:08 AM EST [facility] Blood Venous blood specimen / Unknown Venipuncture / Unknown 06/04/2024 7:56 AM EST 06/04/2024 8:09 AM EST Jah Middleton MD LAB BLOOD ORDERABLES Edited Re sult - Final Performing Organization Address [facility] de Phone Number [facility] [address] [place] [address], [place] [phone] * (ABNORMAL) Vitamin D 25 hydroxy (06/04/2024 7:56 AM EST) Vit D, 25-Hydroxy 19.8(L) 30.0 - 80.0 ng/mL LAB CHEMISTRY METHOD 06/04/2024 8:57 AM EST [facility] Blood Venous blood specimen / Unknown Venipuncture / Unknown 06/04/2024 7:56 AM EST 06/04/2024 8:09 AM EST Jah Middleton MD LAB BLOOD ORDERABLES Final Res ult Performing Organization Address [facility] Co de Phone Number [facility] [address] [place] [address], [place] [phone] * LDL cholesterol, direct (06/04/2024 7:56 AM EST) Pathologist [facility] LDL Direct 61 <=100 mg/dL LAB CHEMISTRY METHOD 06/04/2024 9:11 AM EST [facility] Blood Venous blood specimen / Unknown Venipuncture / Unknown 06/04/2024 7:56 AM EST 06/04/2024 8:09 AM EST Jah Middleton MD LAB BLOOD ORDERABLES Final Res ult Performing Organization Address [facility]/ZIP Co de Phone Number [facility] [address] [place] [address], [place] [phone] * HDL cholesterol (06/04/2024 7:56 AM EST) HDL 56 >=40 mg/dL LAB CHEMISTRY METHOD 06/04/2024 9:11 AM EST [facility] Blood Venous blood specimen / Unknown Venipuncture / Unknown 06/04/2024 7:56 AM EST 06/04/2024 8:09 AM EST Jah Middleton MD LAB BLOOD ORDERABLES Final Res ult Performing Organization Address [facility]/ZIP Co de Phone Number [facility] [address] [place] [address], [place] [phone] * Cholesterol, total (06/04/2024 7:56 AM EST) Pathologist [facility] Cholesterol 130 0 - 200 mg/dL LAB CHEMISTRY METHOD 06/04/2024 8:49 AM EST [facility] Blood Venous blood specimen / Unknown Venipuncture / Unknown 06/04/2024 7:56 AM EST 06/04/2024 8:09 AM EST Jah Middleton MD LAB BLOOD ORDERABLES Final Res ult Performing Organization Address City/[facility]/ZIP Co de Phone Number [facility] [address] [place] [address], [place] [phone] * HM Urine Albumin Creatinine Ratio (01/09/2024) HM Urine Albumin Creatinine Ratio abstracted us Historical Provider HEALTH MAINTENANCE Final Result * Hm Diabetes Eye Exam (08/29/2023) Diabetes: Annual Retina Eye Exam abstracted us Historical Provider HEALTH MAINTENANCE Final Result from Last 3 Months or Most Recently Relevant to Health Maintenance Additional Health Concerns Infection Onset Date Last Indicated Herpes simplex 08/07/2024 08/07/2024 Insurance [employer] MEDICARE Advance Directives Documents on File Type Date Recorded Patient Career Manager Expl anation Health Care Decision (hx) 10/07/2013 AD WALTERS DIRECTIVE Health Care Decision (hx) 10/07/2013 AD WALTERS DIRECTIVE Health Care Decision (hx) 10/07/2013 AD WALTERS DIRECTIVE Health Care Decision (hx) 05/10/2009 AD WALTERS DIRECTIVE Health Care Decision (hx) 05/10/2009 AD WALTERS DIRECTIVE Health Care Decision (hx) 05/10/2009 AD WALTERS DIRECTIVE * Full Code - Default (Latest Code Status on File) Date Activated Date Inactivated Comments 06/19/2024 1:57 AM 06/22/2024 5:38 PM This is order is used when code status has not been discussed with the patient, or code status is otherwise unknown/unconfirmed To update the patient's code status, place a code status order. Do not modify or discontinue any currently active code status orders. Healthcare Agents on File Name Relationship Healthcare Agent [facility] Communication Simone Livingston Other Health Care Agent [email or web address] Care Teams Cloud Infrastructure Architect Relationship Specialty Start Date End Date Yessi Parish MD [address] [phone] PCP - General Internal Medicine 08/21/24
--- OUTSIDE RECORDS SUMMARY | 2024-08-25 11:40 | XMS_ITS | Clinical Summary ---
Author Organization [facility] Address [address] [phone] Phone Care Team Providers Care Poultry Helper Name Role Phone Jah Middleton MD Primary Care Provider Unavail able Allergies Active Allergy Reactions Criticality Noted Date Comments Aspirin Other (see comments) 11/10/2009 Hydrocodone-Acetaminophen Itching 07/11/2011 Penicillins Other (see comments),Hives 03/31/20 09 Medications acetaminophen (TYLENOL) 325 MG tablet Take 1 tablet by mouth 1 (one) time each day Active pantoprazole (PROTONIX) 20 MG EC tablet Take 20 mg by mouth 1 (one) time each day before breakfast Do not crush, chew, or split. Active saccharomyces boulardii (FLORASTOR) 250 MG capsule Take 250 mg by mouth 2 (two) times a day Active triamcinolone (KENALOG) 0.1 % ointment Apply a thin film to the affected area 3-4 times daily 0 Active ergocalciferol 1.25 MG (52383 UT) capsule TAKE 1 CAPSULE BY MOUTH ONE TIME PER WEEK 4 capsule 2 2 Active Lantus SoloStar 100 UNIT/ML injection INJECT 35 UNITS INTO THE SKIN DAILY. 2 Active atorvastatin (LIPITOR) 40 MG tablet Take 40 mg by mouth 1 (one) time each day 2 Active losartan (COZAAR) 100 MG tablet Take 100 mg by mouth 1 (one) time each day 3 Active cyanocobalamin 500 MCG tablet Take 1 Tablet by mouth daily for 360 days. 3 Active NIFEdipine XL (PROCARDIA XL) 30 MG 24 hr tablet Take 30 mg by mouth 5 06/23/19 26 Active Active Problems Problem Noted Date Diagnosed Date Chronic kidney disease stage 3 02/17/2021 Hypertensive renal disease 02/17/2021 Type 2 diabetes mellitus 02/17/2021 Hyperlipidemia 02/17/2021 Gastroesophageal reflux disease 02/17/2021 Obesity 02/17/2021 Arthralgia of bilateral temporomandibular joint 02/17/2021 Recurrent varicose vein of lower leg 02/17/2021 Personal history of prostate cancer 02/17/2021 Abscess of forehead 10/15/2017 Hypertension 09/02/2017 Type 2 diabetes mellitus with renal manifestatio ns 09/02/2017 Lumbar radiculitis 10/10/2011 Lumbago 07/11/2011 Varicose veins of bilateral lower limbs 08/04/19 11 Encounters Date Type Department Care Team Description 08/21/2024 9:30 AM EDT Office Visit [facility] [address] [phone] Carlos Garcia MD Stage 3 chronic kidney disease, not otherwise specified (HCC) (Primary Dx); Type 2 diabetes mellitus without complication (HCC); Hypertension from Last 3 Months Immunizations Immunization Administration Dates Next Due Influenza Split High Dose Pr eservative Free IM 02/20/2022,01/21/2019,02/18/2014 Influenza Vaccine, Quadrival ent, Adjuvanted 01/27/2021 Influenza, Unspecified 01/24/2012,2010,01/27/2010,03/28 Pfizer SARS-COV-2 08/14/2022,04/20/2022 Pneumococcal Conjugate 13-Valent 03/11/2017 Pneumococcal Polysaccharide 04/22/2012, 1 Shingrix 12/22/2018,10/21/2018 Zoster 10/21/2018 Family History Medical History Relation Comments Cancer Father Cancer Mother Relation Status Comments Father Mother Social History Tobacco Use Types Packs/Day Years Used Date Smoking Tobacco: Never Smokeless Tobacco: Never Tobacco Cessation:Counseling Given: No Alcohol Use Standard Drinks/Week Comments Yes 0 (1 standard drink = 0.6 oz pur e alcohol) Sex and Gender Information Value Date Recorded Sex Assigned at Not on file Legal Sex Male 5:08 PM EST Gender Identity Not on file Sexual Orientation Not on file Last Filed Vital Signs Vital Sign Reading Time Taken Comments Blood Pressure 138/78 08/21/2024 9:35 AM EDT Pulse 111 08/21/2024 9:35 AM EDT Temperature - - Respiratory Rate - - Oxygen Saturation 97% 08/21/2024 9:35 AM EDT Inhaled Oxygen Concentration - - Weight 106 kg (233 lb) 08/21/2024 9:35 AM EDT Height 172.7 cm (5' 8 ) 03/07/2020 12:00 PM EST Body Mass Index 35.43 03/07/2020 12:00 PM EST Plan of Treatment Upcoming Encounters Date Type Department Care Team (Late st Contact Info) Description 02/22/2025 9:00 AM EST Office Visit [facility] [address] [phone] Carlos Garcia MD [address] [phone] 04/08/2025 2:45 PM EST Office Visit [facility] [address] [place] [phone] Carlos Garcia MD [address] [phone] Health Maintenance Due Date Last Done Comments Diabetes: Ophthalmology Exam 02/17/2021 Diabetes: Pedal Pulse Checked 02/17/2021 Diabetes: Sensory Foot Exam 02/17/2021 Diabetes: Visual Foot Exam 02/17/2021 Diabetes: Hemoglobin A1C 10/02/202407/02/ 025, 06/04/2024, 05/07/2024, Additional history exists Influenza Vaccine (Season Ended) 2024 02/20/2022, 01/27/2021, 01/21/2019, Additional history exists Pneumococcal Vaccine: 50+ Years Completed 03/11/2017, 04/22/2012, 10/02/2010 Pneumococcal Vaccine: Peds (0 to 5 Years) and At-Risk Patients (6 to 49 Years) Discontinued 03/11/2017, 04/22/2012, 10/02/2010 Hepatitis B Vaccine Aged Out No longe r eligible based on patient's age to complete this topic Insurance [address] [place] [address] [facility] Medicare [address] [place] [address] Care Teams Poultry Helper Relationship Specialty Start Date End Date Jah Middleton MD [address] [phone] PCP - General Internal Medicine 04/23/24
[2024-08-28 21:49] LABS: Aldolase 3.3 U/L (<=8.1)
== END 2024-08-25 10:04 | disposition home or self-care (01) ==
LOC: HO.LAB 10:03
PROVIDERS: Visit Provider Psychiatry & Neurology Neurology
DX: M62.82 Rhabdomyolysis (principal)
CPT/HCPCS: 36415; 82085; 82550; 85652